=== PATIENT | female | born 1975 | race Caucasian/White ===

== ENCOUNTER → 2016-11-10 | Outpatient (CLI) | payer OTHER ==
[~2016-11-10] MED LIST: CARA1TAB2 PO; CITA20TA2 PO; LORA10TA2 PO; OMEP40CA2 PO; ORPH100T PO; TYLE325T5 PO; ZITHTAB PO
--- NOTE | 2016-11-10 11:23 | REP ---
NUCLEAR GASTRIC EMPTYING SCAN: Following the oral administration of 0.839 mCi of technetium 99m sulfur colloid in two scrambled eggs and 6 ounces of water, multiple images of the upper abdomen are performed for 90 minutes. At the end of 90 minutes, 13% of the ingested activity has emptied from the stomach. This yields a t1/2 of 258 minutes. A normal t1/2 is in the range of 90 minutes. IMPRESSION: Moderately delayed gastric emptying as discussed above. Signed by Jose Rosario MD 11/10/2016 12:58 P
== END ==
LOC: M RAD 07:46
PROVIDERS: ATTEND Internal Medicine Gastroenterology
DX: R10.13 Epigastric pain (principal); K31.84 Gastroparesis

== ENCOUNTER 2016-12-04 18:44 | Emergency (ER) | payer OTHER ==
[~2016-12-04] VITALS: Ht 167.6 cm; Wt 77.1 kg
[2016-12-04] MEDS ORDERED: REGL10TA6 PO (19:15)
[2016-12-04] MEDS ORDERED: LISI10TA4 PO (19:15)
[2016-12-05] MEDS ORDERED: KETOROLAC 30 MG/ML VIAL (J1885) IV ONE
[2016-12-05 00:34] LABS: BASO # 0.1 K/mm3 (0.0-0.2); BASO % 0.9 % (0.0-1.0); EOS # 0.3 K/mm3 (0.0-0.50); EOS % 3.6 % (0.0-3.0); LARGE UNSTAINED CELL # 0.1 K/mm3 (0.0-0.4); LARGE UNSTAINED CELL % 1.6 % (0.0-4.0); LYMPH # 2.6 K/mm3 (1.5-4.5); LYMPH % 30.9 % (24.0-44.0); MEAN CORPUSCULAR HEMOGLOBIN 31.7 pg (27.0-33.0); MEAN CORPUSCULAR HGB CONC 33.4 g/dl (32.0-36.5); MEAN CORPUSCULAR VOLUME 94.7 fl (80.0-96.0); MONO # 0.5 K/mm3 (0.0-0.8); MONO % 5.8 % (0.0-5.0); NEUTROPHILS # 4.5 K/mm3 (1.8-7.7); NEUTROPHILS % 57.2 % (36.0-66.0); PLATELET COUNT, AUTOMATED 238 k/mm3 (150-450); RED CELL DISTRIBUTION WIDTH 11.8 % (11.5-14.5); WHITE BLOOD COUNT 7.9 K/mm3 (4.0-10.0)
[2016-12-05 01:08] LABS: ALBUMIN 3.5 GM/DL (3.2-5.2); ALBUMIN/GLOBULIN RATIO 1.06 (1.00-1.93); ALKALINE PHOSPHATASE 74 U/L (45-117); ALT/SGPT 16 U/L (12-78); AMYLASE 48 U/L (25-115); ANION GAP 5 MEQ/L (8-16); AST/SGOT 11 U/L (15-37); BILIRUBIN,DIRECT 0.1 MG/DL (0.0-0.2); BILIRUBIN,TOTAL 0.3 MG/DL (0.2-1.0); BLOOD UREA NITROGEN 14 MG/DL (7-18); CALCIUM LEVEL 8.7 MG/DL (8.5-10.1); CARBON DIOXIDE LEVEL 29 MEQ/L (21-32); CHLORIDE LEVEL 105 MEQ/L (98-107); CREATININE FOR GFR 0.96 MG/DL (0.55-1.02); GLOMERULAR FILTRATION RATE > 60.0 (>60); GLUCOSE, FASTING 128 MG/DL (70-105); POTASSIUM SERUM 3.9 MEQ/L (3.5-5.1); SODIUM LEVEL 139 MEQ/L (136-145); TOTAL PROTEIN 6.8 GM/DL (6.4-8.2)
--- NOTE | 2016-12-05 01:30 | REPUSA ---
CT of the abdomen and pelvis without contrast Clinical statement: Pain. Technique: Multiple axial CT images were obtained from the base of the lungs to the floor of the pelv is utilizing 5 mm axial slices without administration of contrast. Coronal and sagittal reconstructio ns were also obtained. Comparison: 03/29/2016. Findings: Chest: The visualized lung bases are clear. Abdomen: There are innumerable low attenuation lesions throughout the liver and both kidneys, consist ent with polycystic liver and kidney disease. The liver is enlarged measuring 28.1 cm in diameter. Nu merous hyperdense lesions are seen in the kidneys bilaterally, likely representing hemorrhagic/comple x cysts. The spleen, pancreas, gallbladder and adrenal glands are unremarkable. The aorta demonstrate s normal caliber and contour. There is no abdominal lymphadenopathy or ascites. Pelvis: The bowel is unremarkable, with no obstructive or inflammatory changes. The appendix is vu l. The urinary bladder is within normal limits. There is no pelvic lymphadenopathy or ascites. There is a low attenuation lesion in the left ovary measuring 1.6 x 1.7 cm. The other pelvic structures arin ear unremarkable. Bones: There are no suspicious osseous abnormalities seen. Impression: 1. Severe polycystic kidney and liver disease as described. Hepatomegaly and enlargement of the kidne ys bilaterally. Hyperdense lesion in the kidneys likely represent hemorrhagic/complex cyst. 2. No evidence of hydronephrosis or nephrolithiasis. 3. No obstructive or inflammatory bowel changes. 4. Simple left ovarian cyst. 5. Overall, there is no significant interval change.
[2016-12-05 01:58] VITALS: BP 122/62
== END 2016-12-05 01:59 | disposition home or self-care (01) ==
LOC: M ED 19:55
DX: R10.13 Epigastric pain (principal); I10 Essential (primary) hypertension; F33.9 Major depressive disorder, recurrent, unspecified; G43.909 Migraine, unspecified, not intractable, without status migrainosus; K21.9 Gastro-esophageal reflux disease without esophagitis; Q61.3 Polycystic kidney, unspecified; K76.89 Other specified diseases of liver; Z79.899 Other long term (current) drug therapy; Z88.2 Allergy status to sulfonamides; Z91.041 Radiographic dye allergy status; F17.210 Nicotine dependence, cigarettes, uncomplicated
CPT/HCPCS: 36415; 74176; 80048; 80076; 82150; 83690; 85025; 96374; 99283; J1885

== ENCOUNTER → 2017-05-23 | Outpatient (CLI) | payer OTHER ==
[~2017-05-23] MED LIST changes: +LISI10TA4 PO; +REGL10TA6 PO
--- NOTE | 2017-05-23 14:34 | REP ---
LEFT KNEE, FIVE VIEWS: HISTORY: Pain. There is no acute fracture or dislocation. The joint spaces are normal in appearance. IMPRESSION: There is no acute fracture or dislocation. Signed by Domingo Roberts MD 05/23/2017 03:09 P
== END ==
LOC: M LRY 13:20
PROVIDERS: ATTEND Physician Assistant
DX: M25.462 Effusion, left knee (principal); M25.562 Pain in left knee

== ENCOUNTER → 2017-05-23 | Outpatient (REF) | payer OTHER ==
[2017-05-23 19:23] LABS: BASO # 0.1 10^3/uL (0.0-0.2); BASO % 0.9 % (0.0-1.0); EOS # 0.3 10^3/uL (0.0-0.50); EOS % 2.9 % (0.0-3.0); IMMATURE GRANULOCYTE % 0.1 % (0-0); LYMPH # 1.8 10^3/uL (1.5-4.5); LYMPH % 21.1 % (24.0-44.0); MEAN CORPUSCULAR HEMOGLOBIN 31.6 pg (27.0-33.0); MEAN CORPUSCULAR HGB CONC 32.9 g/dl (32.0-36.5); MEAN CORPUSCULAR VOLUME 96.1 fl (80.0-96.0); MONO # 0.7 10^3/uL (0.0-0.8); NEUTROPHILS # 5.9 10^3/uL (1.8-7.7); PLATELET COUNT, AUTOMATED 250 10^3/uL (150-450); RED CELL DISTRIBUTION WIDTH 12.6 % (11.5-14.5); WHITE BLOOD COUNT 8.7 10^3/uL (4.0-10.0)
[2017-05-23 19:26] LABS: ADD MORPHOLOGY? NO
[2017-05-27 00:06] LABS: Lyme Disease IgG/IgM Antibodie <0.91 ISR (0.00-0.90); Lyme Disease IgM Ab Quantitati <0.80 index (0.00-0.79)
== END ==
LOC: M SFHCLERA 14:10
PROVIDERS: ATTEND Physician Assistant
DX: M25.562 Pain in left knee (principal); M25.469 Effusion, unspecified knee

== ENCOUNTER → 2017-05-25 | Outpatient (CLI) | payer OTHER, SELFPAY ==
[~2017-05-25] MED LIST changes: +E-Z-GAS II EFFERVESCENT PACKET (SODIUM BICARB./CITRIC ACID/SIMETHICONE) As Ordered ONE; +E-Z-HD 98% w/w 340GM SUSP BTL As Ordered ONE; +E-Z-PAQUE 96% w/w SUSP 176GM BTL As Ordered ONE
--- NOTE | 2017-05-25 09:34 | REP ---
Complete abdominal sonography: History: Gastroparesis. The patient has a previous history of polycystic kidney disease. Comparison CT study is from December 05, 2016. The patient reports a palpable area in the epigastric region. Comparison sonography November 07, 2016. Sonographic findings: Scanning through the right upper quadrant of the abdomen demonstrates a normal sized thin-walled gallbladder without evidence of stone or polyp. The common bile duct is normal measuring 0.3 cm in greatest diameter. There are innumerable hepatic and renal cysts. The palpable area in the epigastric region reported by the patient corresponds to a superficial hepatic cyst measuring 2.5 x 3.0 x 1.9 cm. The largest cyst in the right lobe of the liver measures 7.5 x 6.1 x 6.5 cm. The largest left hepatic cyst measures 4.6 x 5.0 x 4.5 cm. Innumerable bilateral renal cysts are seen as well. The kidneys are bilaterally enlarged consistent with polycystic kidney disease. Right renal dimensions are 20 x 7.7 x 6.6 cm. The left kidney measures 19 x 7.3 x 7.6 cm. The pancreas is obscured by abdominal gas. A normal caliber aorta is seen. No ascites. Impression: Polycystic kidney disease with enlarged bilateral kidneys containing innumerable cysts. There are innumerable intrahepatic cysts again noted. Signed by Alfie Mayberry MD 05/25/2017 03:02 P
--- NOTE | 2017-05-25 09:51 | REP ---
Double contrast esophagram: History: Gastroparesis. 1 minute 14 seconds of fluoroscopy time was utilized. Findings: Preliminary PA chest radiograph: Business Supervisor view is unremarkable. Double contrast esophagram shows a normal esophagus and gastroesophageal junction. No hiatal hernia or stricture is seen. The oropharyngeal phase of barium swallow is unremarkable recorded on rapid sequence frontal and lateral spot radiographs. Mild gastroesophageal reflux was witnessed during the examination into the distal and mid esophagus. Impression: Mild gastroesophageal reflux noted. Otherwise unremarkable esophagram. Signed by Alfie Mayberry MD 05/25/2017 03:03 P
== END ==
LOC: M RAD 07:22
DX: K31.84 Gastroparesis (principal); R13.10 Dysphagia, unspecified; N28.81 Hypertrophy of kidney; Q61.3 Polycystic kidney, unspecified; K76.89 Other specified diseases of liver

== ENCOUNTER → 2019-05-13 | Outpatient (REF) | payer OTHER ==
[~2019-05-13] MED LIST changes: -E-Z-GAS II EFFERVESCENT PACKET (SODIUM BICARB./CITRIC ACID/SIMETHICONE) As Ordered ONE; -E-Z-HD 98% w/w 340GM SUSP BTL As Ordered ONE; -E-Z-PAQUE 96% w/w SUSP 176GM BTL As Ordered ONE; +PANT40TA3 PO; +SUCR1SS PO
== END ==
LOC: M SFHCLERA 13:59
PROVIDERS: ATTEND Nurse Practitioner Family
DX: R53.81 Other malaise (principal)

== ENCOUNTER → 2019-05-13 | Outpatient (CLI) | payer OTHER ==
--- NOTE | 2019-05-13 14:51 | REP ---
CHEST, TWO VIEWS: There is no evidence of acute infiltrate. No pleural effusion is seen. The heart is normal in size. The mediastinal silhouette is unremarkable. The visualized osseous structures are intact. IMPRESSION: No acute pulmonary disease. Electronically Signed by Jose Rosario MD 05/13/2019 06:54 P
== END ==
LOC: M LRY 14:21
PROVIDERS: ATTEND Nurse Practitioner Family
DX: R05 Cough (principal)

== ENCOUNTER → 2019-06-14 | Outpatient (REF) | payer OTHER ==
[2019-06-16 14:10] LABS: HPV HYBRID CAPTURE II Negative (Negative)
== END ==
LOC: M SFHCWAGY 13:26
PROVIDERS: ATTEND Nurse Practitioner Women's Health
DX: Z12.4 Encounter for screening for malignant neoplasm of cervix (principal); R87.5 Abnormal microbiological findings in specimens from female genital organs
CPT/HCPCS: 87624; G0123

== ENCOUNTER → 2019-06-14 | Outpatient (CLI) | payer OTHER ==
--- NOTE | 2019-06-14 12:16 | REPMRS ---
Patient History The patient states she had a clinical breast exam in 05/2019. Family history of endometrial cancer at age 50 or over in maternal grandmother. No Hormone Replacement Therapy 3D TOMOSYNTHESIS WAS PERFORMED. [facility] lifetime risk for breast cancer is 10.8%. Digital Woman Screen Mammo: June 14, 2019 - Exam #: [id number] Bilateral CC and MLO view(s) were taken. Technologist: Stephanie Ramos, Technologist No prior studies available for comparison. FINDINGS: The breast tissue is heterogeneously dense. This may lower the sensitivity of mammography. There is no evidence of cancer on this mammogram. Assessment: BI-RADS/ACR category 2 mammogram. Benign Findings. Recommendation Routine screening mammogram of both breasts in 1 year (for women over age 40). This mammogram was interpreted with the aid of an FDA-approved computer-aided dectection system. Electronically Signed By: Jose Rosario MD 06/14/19 [id number]
== END ==
LOC: M WHC 11:00
PROVIDERS: ATTEND Nurse Practitioner Women's Health
DX: Z12.31 Encounter for screening mammogram for malignant neoplasm of breast (principal); Z80.49 Family history of malignant neoplasm of other genital organs

== ENCOUNTER → 2019-06-17 | Outpatient (CLI) | payer OTHER ==
--- NOTE | 2019-06-17 17:08 | REP ---
HISTORY: Metromenorrhagia. Transvesical and transvaginal imaging was obtained. The latest prior for comparison 02/20/2011, which showed no significant abnormality. Two small uterine fibroids were seen. Today's examination shows the uterus to measure 10.9 x 6.7 cm. The parenchymal echo pattern is heterogenous. In the posterior fundal region, there is a 5.1 x 4.4 x 3.9 cm sized mixed echo structure and in the anterior lower uterine segment there is a 4.5 x 3 x 3.2 mixed echo structure, both consistent with myomatous changes and both increased significantly compared to the prior exam. The endometrial echo complex is abnormally thickened and heterogeneous measuring 1.5 cm. The right ovary measures 3.2 x 1.4 x 2.5 cm and is within normal limits with an RI of 0.5. Left ovary measures 3.8 x 2.2 x 2.7 cm. Within the left ovary there is a 2.5 x 1.6 x 2.4 cm sized anechoic structure which exhibits posterior wall enhancement and increased through transmission. Urinary bladder measures 6 x 6 x 3 cm. IMPRESSION: 1. Uterine myomatous changes as described above. 2. Thickened somewhat heterogenous endometrial echo complex. Correlate clinically. 3. Simple left ovarian cyst. Electronically Signed by Bal Cherry DO 06/20/2019 02:27 P
== END ==
LOC: M RAD 12:03
PROVIDERS: ATTEND Nurse Practitioner Women's Health
DX: N83.202 Unspecified ovarian cyst, left side (principal); D25.9 Leiomyoma of uterus, unspecified; N92.1 Excessive and frequent menstruation with irregular cycle; N94.10 Unspecified dyspareunia

== ENCOUNTER → 2019-06-24 | Outpatient (REF) | payer OTHER | LOC: M SFHCWAGY 09:34 | PROVIDERS: ATTEND Nurse Practitioner Women's Health | DX: N92.1 Excessive and frequent menstruation with irregular cycle (principal); R93.89 Abnormal findings on diagnostic imaging of other specified body structures ==

== ENCOUNTER 2019-10-07 05:53 | Day surgery (SDC) | payer OTHER ==
[2019-10-07] VITALS (7 sets, daily range): BP systolic 116–129; BP diastolic 74–89
[~2019-10-07] VITALS: Ht 167.6 cm; Wt 78.0 kg
[~2019-10-07 05:53] MED LIST changes: +CITA40TA4 PO; +LISI-542 PO; +PEPC10TA6 PO
[2019-10-07] MEDS ORDERED: LIDOCAINE 1% MDV 20ML VIAL SQ PRN (06:00)
[2019-10-07] MEDS ORDERED: LR 1,000 ML IV ONE (07:00)
[2019-10-07] MEDS ORDERED: ceFAZolin 2 GM/D5W 50 ML IV BAG (J0690 PER 500MG) As Ordered ONE (07:28)
[2019-10-07 07:44] LABS: HEMATOCRIT 42.1 % (36.0-47.0); HEMOGLOBIN 13.7 g/dl (12.0-15.5); MEAN CORPUSCULAR HEMOGLOBIN 30.7 pg (27.0-33.0); MEAN CORPUSCULAR HGB CONC 32.5 g/dl (32.0-36.5); MEAN CORPUSCULAR VOLUME 94.4 fl (80.0-96.0); PLATELET COUNT, AUTOMATED 263 10^3/uL (150-450); RED BLOOD COUNT 4.46 10^6/uL (4.00-5.40); WHITE BLOOD COUNT 7.7 10^3/uL (4.0-10.0)
[2019-10-07] MEDS ORDERED: ceFAZolin SOD 2 GM in IV 1 EA IV ONE (07:45)
[2019-10-07] MEDS ORDERED: METHYLENE BLUE 0.5% (5MG/ML) 10 ML AMP (PROVAYBLUE)(Q9968 PER 1MG) As Ordered ONE (08:32)
[2019-10-07] MEDS ORDERED: BUPIVACAINE HCL 0.25% 30 ML VIAL As Ordered ONE (08:32)
[2019-10-07] MEDS ORDERED: LIDOCAINE 2% INJ 100 MG/5 ML SDV (FOR ANES.) As Ordered ONE ×3 (08:40→09:28)
[2019-10-07] MEDS ORDERED: MIDAZOLAM INJ 2 MG/2 ML VIAL (J2250) As Ordered ONE (08:40)
[2019-10-07] MEDS ORDERED: propofoL 200 MG/20 ML VIAL As Ordered ONE (08:40)
[2019-10-07] MEDS ORDERED: dexameTHASONE 4 MG/ML 1ML VIAL (J1100) As Ordered ONE (08:40)
[2019-10-07] MEDS ORDERED: ROCURONIUM BROMIDE 50 MG/5 ML VIAL As Ordered ONE ×2 (08:40→10:20)
[2019-10-07] MEDS ORDERED: fentaNYL 100 MCG/2 ML INJECTION (J3010) As Ordered ONE ×2 (08:40→09:27)
[2019-10-07] MEDS ORDERED: ONDANSETRON 4MG/2ML VIAL (J2405) As Ordered ONE (08:41)
[2019-10-07] MEDS ORDERED: SUGAMMADEX SODIUM 500 MG/5 ML VIAL (BRIDION) As Ordered ONE (08:42)
[2019-10-07] MEDS ORDERED: KETOROLAC 60 MG/2 ML VIAL (J1885) As Ordered ONE (08:42)
[2019-10-07] MEDS ORDERED: METOCLOPRAMIDE INJ 10MG/2ML VIAL (J2765) As Ordered ONE (08:43)
[2019-10-07] MEDS ORDERED: SCOPOLAMINE 1MG TRANSDERMAL PATCH As Ordered ONE (08:48)
[2019-10-07] MEDS ORDERED: SCOPOLAMINE 1MG TRANSDERMAL PATCH TOP ONE (09:00)
[2019-10-07] MEDS ORDERED: ACETAMINOPHEN 1000MG 100ML IV BTL (OFIRMEV) (J0131 PER 10MG) As Ordered ONE (10:21)
[2019-10-07] MEDS ORDERED: PROMETHAZINE INJ 25 MG/ML VIAL (J2550) IV PRN (11:15)
[2019-10-07] MEDS ORDERED: ONDANSETRON 4MG/2ML VIAL (J2405) IV PRN ×2 (11:15→11:45)
[2019-10-07] MEDS ORDERED: ONDANSETRON 4 MG ORAL DISINTEGRATING TAB (Q0162 PER 1MG) PO PRN (11:15)
[2019-10-07] MEDS ORDERED: PERCOCET 5MG/325MG TAB PO PRN ×3 (11:15→11:45)
[2019-10-07] MEDS ORDERED: fentaNYL 100 MCG/2 ML INJECTION (J3010) IV PRN (11:45)
[2019-10-07] MEDS ORDERED: LR 1,000 ML IV SCH (11:45)
[2019-10-07] MEDS ORDERED: PILL CUTTER 1 EACH XX PRN (12:30)
[2019-10-07] MEDS: FAMOTIDINE 20 MG TAB PO SCH (13:35)
[2019-10-07] MEDS: lisinopriL 5 MG TAB PO SCH (13:35)
[2019-10-07] MEDS: CitaloPRAM (CeleXA) 20 MG TAB PO SCH (13:35)
[2019-10-07] MEDS: LR 1,000 ML IV SCH ×3 (13:36→21:06)
[2019-10-07] MEDS: MORPHINE 4 MG/ML 1ML VIAL/SYRINGE (J2270) IV PRN (19:01)
[2019-10-07] MEDS: DOCUSATE SODIUM 100 MG CAP PO SCH (21:06)
[2019-10-08 00:30] VITALS: BP 119/74
[2019-10-08 02:00] VITALS: BP 132/81
[2019-10-08] MEDS: MORPHINE 4 MG/ML 1ML VIAL/SYRINGE (J2270) IV PRN (03:57)
[2019-10-08 06:00] VITALS: BP 120/77
[2019-10-08 06:26] LABS: BASO % 0.2 % (0.0-1.0); EOS % 0.1 % (0.0-3.0); LYMPH # 1.9 10^3/uL (1.5-5.0); LYMPH % 10.4 % (24.0-44.0); MEAN CORPUSCULAR HEMOGLOBIN 31.1 pg (27.0-33.0); MEAN CORPUSCULAR HGB CONC 33.3 g/dl (32.0-36.5); MEAN CORPUSCULAR VOLUME 93.3 fl (80.0-96.0); MONO # 1.2 10^3/uL (0.0-0.8); MONO % 6.6 % (0.0-5.0); NEUTROPHILS # 14.7 10^3/uL (1.5-8.5); NEUTROPHILS % 82.1 % (36.0-66.0); PLATELET COUNT, AUTOMATED 220 10^3/uL (150-450); RED BLOOD COUNT 3.86 10^6/uL (4.00-5.40); WHITE BLOOD COUNT 17.9 10^3/uL (4.0-10.0)
[2019-10-08] MEDS: DOCUSATE SODIUM 100 MG CAP PO SCH (08:30)
[2019-10-08] MEDS: CitaloPRAM (CeleXA) 20 MG TAB PO SCH (08:31)
[2019-10-08] MEDS: FAMOTIDINE 20 MG TAB PO SCH (08:31)
[2019-10-08] MEDS: LR 1,000 ML IV SCH (08:31)
[2019-10-08 08:32] VITALS: BP 121/78
[2019-10-08] MEDS: lisinopriL 5 MG TAB PO SCH (08:32)
[2019-10-08 10:00] VITALS: BP 122/78
[2019-10-08] MEDS ORDERED: DOCU100C16 PO (13:09)
[2019-10-08] MEDS ORDERED: OXYC1TAB23 PO (13:09)
== END 2019-10-08 14:13 | disposition home or self-care (01) ==
LOC: M SDC 05:53 → M MSPAV 12:19 → M SDC 10-08 14:13
PROVIDERS: ATTEND Obstetrics & Gynecology
DX: N85.00 Endometrial hyperplasia, unspecified (principal); D25.1 Intramural leiomyoma of uterus; D25.2 Subserosal leiomyoma of uterus; N72 Inflammatory disease of cervix uteri; Q44.6 Cystic disease of liver
CPT/HCPCS: 36415; 58571; 84702; 85025; 85027; 86850; 86900; 86901; 88307; 96374; 96376; J0131; J0690; J1100; J1885; J2250; J2270; J2405; J2765; J3010; Q9968

== ENCOUNTER → 2020-05-28 | Outpatient (CLI) | payer OTHER ==
[~2020-05-28] MED LIST changes: +DOCU100C16 PO; +OXYC1TAB23 PO; +PANT40TA29 PO; -PANT40TA3 PO
[2020-05-28 13:14] LABS: BILIRUBIN,DIRECT 0.1 MG/DL (0.0-0.2); BILIRUBIN,TOTAL 0.6 MG/DL (0.2-1.0); CALCIUM LEVEL 9.5 MG/DL (8.5-10.1); CREATININE FOR GFR 1.75 MG/DL (0.55-1.30); GLOMERULAR FILTRATION RATE 33.9 (>58); POTASSIUM SERUM 4.1 MEQ/L (3.5-5.1); TOTAL PROTEIN 7.4 GM/DL (6.4-8.2)
== END ==
LOC: M LAB 12:00
PROVIDERS: ATTEND Internal Medicine Nephrology
DX: N18.2 Chronic kidney disease, stage 2 (mild) (principal); Q61.2 Polycystic kidney, adult type

== ENCOUNTER → 2020-06-27 | Outpatient (CLI) | payer OTHER ==
[2020-06-27 10:07] LABS: ALBUMIN 3.9 GM/DL (3.2-5.2); BILIRUBIN,TOTAL 0.5 MG/DL (0.2-1.0); CALCIUM LEVEL 9.9 MG/DL (8.5-10.1); CREATININE FOR GFR 1.61 MG/DL (0.55-1.30); GLOMERULAR FILTRATION RATE 37.2 (>58); POTASSIUM SERUM 4.5 MEQ/L (3.5-5.1); TOTAL PROTEIN 7.6 GM/DL (6.4-8.2)
== END ==
LOC: M LAB 08:36
PROVIDERS: ATTEND Internal Medicine Nephrology
DX: Z79.899 Other long term (current) drug therapy (principal)

== ENCOUNTER → 2020-08-31 | Outpatient (CLI) | payer OTHER ==
[2020-08-31 14:32] LABS: BILIRUBIN,TOTAL 0.4 MG/DL (0.2-1.0); CALCIUM LEVEL 9.4 MG/DL (8.5-10.1); CREATININE FOR GFR 1.59 MG/DL (0.55-1.30); GLOMERULAR FILTRATION RATE 37.7 (>58); POTASSIUM SERUM 4.7 MEQ/L (3.5-5.1); TOTAL PROTEIN 7.4 GM/DL (6.4-8.2)
== END ==
LOC: M LAB 12:32
PROVIDERS: ATTEND Internal Medicine Nephrology
DX: Z79.899 Other long term (current) drug therapy (principal)

== ENCOUNTER → 2020-10-05 | Outpatient (CLI) | payer OTHER ==
[~2020-10-05] MED LIST changes: -LISI-542 PO; +LISI-898 PO; +LISI10TA22 PO; -LISI10TA4 PO
[2020-10-05 13:32] LABS: BILIRUBIN,TOTAL 0.3 MG/DL (0.2-1.0); CALCIUM LEVEL 9.2 MG/DL (8.5-10.1); CREATININE FOR GFR 1.49 MG/DL (0.55-1.30); GLOMERULAR FILTRATION RATE 40.7 (>58); POTASSIUM SERUM 4.8 MEQ/L (3.5-5.1); TOTAL PROTEIN 7.5 GM/DL (6.4-8.2)
== END ==
LOC: M LAB 12:20
PROVIDERS: ATTEND Internal Medicine Nephrology
DX: Z51.81 Encounter for therapeutic drug level monitoring (principal); Z79.899 Other long term (current) drug therapy

== ENCOUNTER → 2020-11-08 | Outpatient (CLI) | payer OTHER ==
[2020-11-08 14:22] LABS: ALBUMIN 3.9 GM/DL (3.2-5.2); BILIRUBIN,TOTAL 0.3 MG/DL (0.2-1.0); CALCIUM LEVEL 9.4 MG/DL (8.5-10.1); CREATININE FOR GFR 1.27 MG/DL (0.55-1.30); GLOMERULAR FILTRATION RATE 48.9 (>58); POTASSIUM SERUM 4.3 MEQ/L (3.5-5.1); TOTAL PROTEIN 7.3 GM/DL (6.4-8.2)
== END ==
LOC: M LAB 13:23
PROVIDERS: ATTEND Internal Medicine Nephrology
DX: Z79.899 Other long term (current) drug therapy (principal)

== ENCOUNTER → 2020-11-08 | Outpatient (CLI) | payer OTHER ==
[2020-11-08 14:06] LABS: INR 0.95; PROTHROMBIN TIME 12.9 SECONDS (12.5-14.3)
[2020-11-08 14:07] LABS: PARTIAL THROMBOPLASTIN TIME 33.1 SECONDS (24.2-38.5)
[2020-11-08 14:17] LABS: COLLAGEN EPINEPHRINE 89 SECONDS (74-162)
== END ==
LOC: M LAB 13:20
PROVIDERS: ATTEND Physician Assistant
DX: M47.27 Other spondylosis with radiculopathy, lumbosacral region (principal)

== ENCOUNTER → 2020-11-09 | Outpatient (CLI) | payer OTHER ==
[2020-11-09 10:22] LABS: PLATELET COUNT, AUTOMATED 252 10^3/uL (150-450)
== END ==
LOC: M LAB 09:56
PROVIDERS: ATTEND Physical Medicine & Rehabilitation
DX: Z01.812 Encounter for preprocedural laboratory examination (principal)

== ENCOUNTER → 2020-12-27 | Outpatient (CLI) | payer OTHER ==
[2020-12-27 12:49] LABS: CALCIUM LEVEL 8.9 MG/DL (8.5-10.1); CREATININE FOR GFR 1.18 MG/DL (0.55-1.30); GLOMERULAR FILTRATION RATE 53.2 (>58); POTASSIUM SERUM 4.2 MEQ/L (3.5-5.1)
[2020-12-27 12:50] LABS: ALBUMIN 3.4 GM/DL (3.2-5.2); BILIRUBIN,TOTAL 0.4 MG/DL (0.2-1.0); TOTAL PROTEIN 6.6 GM/DL (6.4-8.2)
== END ==
LOC: M LAB 11:42
PROVIDERS: ATTEND Internal Medicine Nephrology
DX: Z79.899 Other long term (current) drug therapy (principal)

== ENCOUNTER → 2020-12-31 | Outpatient (CLI) | payer OTHER ==
--- NOTE | 2020-12-31 19:13 | REP ---
INDICATION: PAIN IN LEFT SHOULDER COMPARISON: None. TECHNIQUE: Three views left shoulder. FINDINGS: There is no evidence of acute fracture, dislocation, or intrinsic bone disease.The joint spaces are unremarkable. IMPRESSION: Negative left shoulder series. <Electronically signed by Jose Rosario > 12/31/20 [id number]
== END ==
LOC: M RAD 18:38
PROVIDERS: ATTEND Physician Assistant
DX: M25.512 Pain in left shoulder (principal)

== ENCOUNTER → 2021-05-10 | Outpatient (CLI) | payer OTHER ==
[~2021-05-10] MED LIST changes: -CITA40TA4 PO; +CITA40TA7 PO; -LISI-898 PO; +LISI5TAB11 PO
== END ==
LOC: M RAD 12:49
PROVIDERS: ATTEND Internal Medicine
DX: K31.84 Gastroparesis (principal)
CPT/HCPCS: 78264; A9541

== ENCOUNTER → 2021-08-22 | Outpatient (CLI) | payer OTHER ==
[~2021-08-22] MED LIST changes: +CITA40TA4 PO; -CITA40TA7 PO; +LISI-898 PO; -LISI5TAB11 PO
[2021-08-22 12:23] LABS: ALBUMIN 3.6 GM/DL (3.2-5.2); BILIRUBIN,TOTAL 0.2 MG/DL (0.2-1.0); CALCIUM LEVEL 9.3 MG/DL (8.5-10.1); CREATININE FOR GFR 1.32 MG/DL (0.55-1.30); GLOMERULAR FILTRATION RATE 46.5 (>58); POTASSIUM SERUM 4.1 MEQ/L (3.5-5.1); TOTAL PROTEIN 7.3 GM/DL (6.4-8.2)
== END ==
LOC: M LAB 10:05
PROVIDERS: ATTEND Internal Medicine Nephrology
DX: Q61.2 Polycystic kidney, adult type (principal)

== ENCOUNTER → 2021-10-28 | Outpatient (CLI) | payer OTHER ==
[~2021-10-28] MED LIST changes: -CITA40TA4 PO; +CITA40TA7 PO; -LISI-898 PO; +LISI5TAB11 PO
[2021-10-28 11:38] LABS: BILIRUBIN,TOTAL 0.5 MG/DL (0.2-1.0); CALCIUM LEVEL 9.6 MG/DL (8.5-10.1); CREATININE FOR GFR 1.58 MG/DL (0.55-1.30); GLOMERULAR FILTRATION RATE 37.8 (>58); POTASSIUM SERUM 4.3 MEQ/L (3.5-5.1); TOTAL PROTEIN 7.6 GM/DL (6.4-8.2)
== END ==
LOC: M LAB 10:22
PROVIDERS: ATTEND Internal Medicine Nephrology
DX: Q61.2 Polycystic kidney, adult type (principal)

== ENCOUNTER → 2021-12-06 | Outpatient (CLI) | payer OTHER ==
[2021-12-06 13:32] LABS: ALBUMIN 3.9 GM/DL (3.2-5.2); BILIRUBIN,TOTAL 0.4 MG/DL (0.2-1.0); CALCIUM LEVEL 9.6 MG/DL (8.5-10.1); CREATININE FOR GFR 1.38 MG/DL (0.55-1.30); GLOMERULAR FILTRATION RATE 44.2 (>58); POTASSIUM SERUM 4.5 MEQ/L (3.5-5.1); TOTAL PROTEIN 7.1 GM/DL (6.4-8.2)
== END ==
LOC: M LAB 11:28
PROVIDERS: ATTEND Internal Medicine Nephrology
DX: Q61.2 Polycystic kidney, adult type (principal)

== ENCOUNTER → 2022-02-17 | Outpatient (CLI) | payer OTHER ==
[2022-02-17 11:28] LABS: ALBUMIN 3.8 GM/DL (3.2-5.2); BILIRUBIN,TOTAL 0.5 MG/DL (0.2-1.0); CALCIUM LEVEL 9.7 MG/DL (8.5-10.1); CREATININE FOR GFR 1.48 MG/DL (0.55-1.30); GLOMERULAR FILTRATION RATE 40.8 (>58); POTASSIUM SERUM 4.3 MEQ/L (3.5-5.1); TOTAL PROTEIN 7.2 GM/DL (6.4-8.2)
== END ==
LOC: M LAB 10:01
PROVIDERS: ATTEND Internal Medicine Nephrology
DX: Q61.2 Polycystic kidney, adult type (principal)

== ENCOUNTER → 2022-12-02 | Outpatient (CLI) | payer OTHER ==
[2022-12-02 16:44] LABS: APPEARANCE, URINE CLEAR (CLEAR); BACTERIA, URINE AUTO NEGATIVE (NEGATIVE); BILIRUBIN, URINE AUTO NEGATIVE (NEGATIVE); BLOOD, URINE BLOOD 1+ (NEGATIVE); COLOR, URINE YELLOW (YELLOW); GLUCOSE, URINE (UA) AUTO NEGATIVE (NEGATIVE); KETONE, URINE AUTO NEGATIVE (NEGATIVE); LEUKOCYTE ESTERASE, URINE AUTO NEGATIVE (NEGATIVE); NITRITE, URINE AUTO NEGATIVE (NEGATIVE); PROTEIN, URINE AUTO NEGATIVE (NEGATIVE); RBC, URINE AUTO 1 /HPF (0-3); SPECIFIC GRAVITY URINE AUTO 1.005 (1.002-1.035); SQUAMOUS EPITHELIAL CELL UR AU 4 /HPF (0-6); UROBILINOGEN, URINE AUTO 0.2 mg/dL (0.0-2.0); WBC, URINE AUTO 1 /HPF (0-3)
== END ==
LOC: M LAB 16:08
PROVIDERS: ATTEND Nurse Practitioner
DX: N20.0 Calculus of kidney (principal); N28.1 Cyst of kidney, acquired

== ENCOUNTER 2022-12-14 03:05 | Emergency (ER) | payer OTHER ==
[~2022-12-14] VITALS: Ht 167.6 cm; Wt 87.9 kg
[2022-12-14] MEDS ORDERED: CALC1CAP31 (03:27)
[2022-12-14] MEDS ORDERED: LISI10TA22 (03:27)
[2022-12-14] MEDS ORDERED: PARO40TA2 (03:27)
[2022-12-14] MEDS ORDERED: SUCR1TAB56 (03:27)
[2022-12-14] MEDS ORDERED: PAXI40TA12 PO (03:28)
[2022-12-14] MEDS ORDERED: DEXI60CA2 (03:28)
[2022-12-14] MEDS ORDERED: [UNRECOGNIZED DRUG - CODE] (03:28)
[2022-12-14] MEDS ORDERED: REGL10TA6 (03:28)
[2022-12-14] MEDS ORDERED: KETOROLAC 30 MG/ML 1ML VIAL IV ONE (04:15)
[2022-12-14] MEDS ORDERED: ONDANSETRON 4MG 2ML VIAL IV ONE (04:15)
[2022-12-14 04:25] LABS: BASO # 0.1 10^3/uL (0.0-0.2); EOS # 0.4 10^3/uL (0.0-0.5); EOS % 4.6 % (0.0-3.0); HEMATOCRIT 39.6 % (36.0-47.0); HEMOGLOBIN 12.6 g/dl (12.0-15.5); LYMPH # 1.9 10^3/uL (1.5-5.0); LYMPH % 22.7 % (24.0-44.0); MEAN CORPUSCULAR HEMOGLOBIN 30.7 pg (27.0-33.0); MEAN CORPUSCULAR HGB CONC 31.8 g/dl (32.0-36.5); MEAN CORPUSCULAR VOLUME 96.4 fl (80.0-96.0); MONO # 0.8 10^3/uL (0.0-0.8); NEUTROPHILS # 5.2 10^3/uL (1.5-8.5); NEUTROPHILS % 62.3 % (36.0-66.0); PLATELET COUNT, AUTOMATED 234 10^3/uL (150-450); RED BLOOD COUNT 4.11 10^6/uL (4.00-5.40); WHITE BLOOD COUNT 8.3 10^3/uL (4.0-10.0)
[2022-12-14 04:52] LABS: LIPASE 45 U/L (12-53)
[2022-12-14 04:54] LABS: ALBUMIN 3.4 G/DL (3.2-5.2); ALKALINE PHOSPHATASE 181 U/L (46-116); ALT/SGPT 33 U/L (7.0-40); AST/SGOT 25 U/L (<34); BILIRUBIN,DIRECT 0.1 MG/DL (<0.4); BILIRUBIN,TOTAL 0.3 MG/DL (0.3-1.2); BLOOD UREA NITROGEN 12 MG/DL (9-23); CALCIUM LEVEL 8.9 MG/DL (8.5-10.1); CARBON DIOXIDE LEVEL 27 MMOL/L (20-31); CHLORIDE LEVEL 106 MMOL/L (98-107); CK-MB VALUE MASS < 1.0 NG/ML (<3.6); CPK CREATINE PHOSPHOKINASE 59 U/L (34-145); CREATININE FOR GFR 1.61 MG/DL (0.55-1.30); GLOMERULAR FILTRATION RATE 36.8 (>58); GLUCOSE, FASTING 109 MG/DL (60-100); MB/CK RELATIVE INDEX 1.69 (< OR =4); POTASSIUM SERUM 4.4 MMOL/L (3.5-5.1); SODIUM LEVEL 138 MMOL/L (136-145); TOTAL PROTEIN 6.8 G/DL (5.7-8.2)
[2022-12-14 04:55] LABS: HCG, SERUM QUALITATIVE NEGATIVE (NEGATIVE)
[2022-12-14 05:00] LABS: RSV AMPLIFICATION NEGATIVE (NEGATIVE)
[2022-12-14] MEDS ORDERED: NS 1,000 ML IV ONE (05:10)
[2022-12-14] MEDS ORDERED: LIDOCAINE 2% 5ML JELLY UROJET TOP ONE (07:00)
[2022-12-14 07:29] LABS: APPEARANCE, URINE HAZY (CLEAR); BACTERIA, URINE AUTO 2+ (NEGATIVE); BILIRUBIN, URINE AUTO NEGATIVE (NEGATIVE); BLOOD, URINE BLOOD 2+ (NEGATIVE); COLOR, URINE YELLOW (YELLOW); GLUCOSE, URINE (UA) AUTO NEGATIVE (NEGATIVE); KETONE, URINE AUTO NEGATIVE (NEGATIVE); LEUKOCYTE ESTERASE, URINE AUTO NEGATIVE (NEGATIVE); NITRITE, URINE AUTO NEGATIVE (NEGATIVE); PROTEIN, URINE AUTO 1+ mg/dL (NEGATIVE); RBC, URINE AUTO 28 /HPF (0-3); SPECIFIC GRAVITY URINE AUTO 1.004 (1.002-1.035); SQUAMOUS EPITHELIAL CELL UR AU 4 /HPF (0-6); UROBILINOGEN, URINE AUTO 0.2 mg/dL (0.0-2.0); WBC, URINE AUTO 5 /HPF (0-3)
[2022-12-14] MEDS ORDERED: ACET-716 PO (07:54)
[2022-12-14 08:16] VITALS: BP 118/77
== END 2022-12-14 08:22 | disposition home or self-care (01) ==
LOC: M ED 03:05
DX: R10.9 Unspecified abdominal pain (principal); Q61.3 Polycystic kidney, unspecified; Q44.6 Cystic disease of liver; I10 Essential (primary) hypertension; K21.9 Gastro-esophageal reflux disease without esophagitis; Z91.041 Radiographic dye allergy status; Z88.2 Allergy status to sulfonamides; Z88.8 Allergy status to other drugs, medicaments and biological substances; Z79.899 Other long term (current) drug therapy
CPT/HCPCS: 71045; 74176; 80048; 80076; 81001; 82550; 82553; 83605; 83690; 84484; 84703; 85025; 87040; 87086; 87631; 96374; 96375; 99284; J1885; J2405

== ENCOUNTER 2022-12-17 07:37 | Inpatient (IN) | payer OTHER ==
[~2022-12-17] VITALS: Ht 167.6 cm; Wt 87.5 kg
[~2022-12-17 07:37] MED LIST changes: +ACET-716 PO; +CALC1CAP31 PO; +DEXI60CA2 PO; +PARO40TA2 PO; +PAXI40TA12 PO; +SUCR1TAB56 PO; +[UNRECOGNIZED DRUG - CODE] PO
[2022-12-17] MEDS ORDERED: MORPHINE 4 MG/ML 1ML VIAL IV ONE (08:30)
[2022-12-17] MEDS ORDERED: NS 1,000 ML IV ONE (08:30)
[2022-12-17] MEDS ORDERED: PANTOPRAZOLE 40MG TAB (PROTONIX) PO SCH (09:00)
[2022-12-17 09:13] LABS: BASO # 0.1 10^3/uL (0.0-0.2); BASO % 0.5 % (0.0-1.0); EOS # 0.1 10^3/uL (0.0-0.5); EOS % 1.1 % (0.0-3.0); HEMATOCRIT 33.6 % (36.0-47.0); HEMOGLOBIN 11.2 g/dl (12.0-15.5); LYMPH # 0.9 10^3/uL (1.5-5.0); LYMPH % 7.8 % (24.0-44.0); MEAN CORPUSCULAR HEMOGLOBIN 31.5 pg (27.0-33.0); MEAN CORPUSCULAR HGB CONC 33.3 g/dl (32.0-36.5); MEAN CORPUSCULAR VOLUME 94.4 fl (80.0-96.0); MONO # 0.9 10^3/uL (0.0-0.8); MONO % 8.1 % (2.0-8.0); NEUTROPHILS # 8.9 10^3/uL (1.5-8.5); NEUTROPHILS % 81.9 % (36.0-66.0); PLATELET COUNT, AUTOMATED 202 10^3/uL (150-450); RED BLOOD COUNT 3.56 10^6/uL (4.00-5.40); WHITE BLOOD COUNT 10.8 10^3/uL (4.0-10.0)
[2022-12-17 09:34] LABS: LIPASE 24 U/L (12-53)
[2022-12-17 09:37] LABS: ALBUMIN 2.8 G/DL (3.2-5.2); ALKALINE PHOSPHATASE 165 U/L (46-116); ALT/SGPT < 9 U/L (7.0-40); AST/SGOT 13 U/L (<34); BILIRUBIN,DIRECT 0.3 MG/DL (<0.4); BILIRUBIN,TOTAL 0.7 MG/DL (0.3-1.2); BLOOD UREA NITROGEN 22 MG/DL (9-23); CALCIUM LEVEL 8.3 MG/DL (8.5-10.1); CARBON DIOXIDE LEVEL 25 MMOL/L (20-31); CHLORIDE LEVEL 104 MMOL/L (98-107); CREATININE FOR GFR 2.51 MG/DL (0.55-1.30); GLOMERULAR FILTRATION RATE 22.1 (>58); GLUCOSE, FASTING 102 MG/DL (60-100); POTASSIUM SERUM 4.4 MMOL/L (3.5-5.1); SODIUM LEVEL 136 MMOL/L (136-145); TOTAL PROTEIN 5.9 G/DL (5.7-8.2)
[2022-12-17] MEDS ORDERED: cefTRIAXone SOD 1 GM in D5W MINI-BAG PLUS 50 ML IV ONE (10:05)
[2022-12-17] MEDS ORDERED: HOME MED LIST COMPLETE! XX SCH (12:40)
[2022-12-17] MEDS ORDERED: METOCLOPRAMIDE 10MG TAB PO PRN (13:35)
[2022-12-17] MEDS ORDERED: MOM 30ML SUSPENSION UDC PO PRN (13:35)
[2022-12-17] MEDS ORDERED: MORPHINE 2 MG/ML 1ML VIAL IV ONE (14:00)
[2022-12-17] MEDS ORDERED: ACETAMINOPHEN 500 MG TAB PO PRN (14:35)
[2022-12-17] MEDS: LR 1,000 ML IV SCH ×2 (15:15→22:35)
[2022-12-17] MEDS: DOCUSATE SODIUM 100MG CAPSULE PO SCH ×2 (15:47→20:41)
[2022-12-17] MEDS: LIDOCAINE 5% (LIDODERM) PATCH TD SCH (15:56)
[2022-12-17 16:00] VITALS: BP 109/75
[2022-12-17] MEDS: HYDROMORPHONE HCL 0.5 MG/ 0.5 ML SYRINGE IV PRN (19:17)
[2022-12-17 20:00] VITALS: BP 116/79
[2022-12-17] MEDS ORDERED: TOLVAPTAN 15 MG TAB (SAMSCA) PO SCH (20:00)
[2022-12-17] MEDS: SUCRALFATE 1 GM TAB PO SCH (20:41)
[2022-12-18 06:00] VITALS: BP 121/79
[2022-12-18 07:27] LABS: HEMATOCRIT 31.7 % (36.0-47.0); HEMOGLOBIN 10.2 g/dl (12.0-15.5); MEAN CORPUSCULAR HEMOGLOBIN 30.4 pg (27.0-33.0); MEAN CORPUSCULAR HGB CONC 32.2 g/dl (32.0-36.5); MEAN CORPUSCULAR VOLUME 94.3 fl (80.0-96.0); PLATELET COUNT, AUTOMATED 216 10^3/uL (150-450); RED BLOOD COUNT 3.36 10^6/uL (4.00-5.40)
[2022-12-18 08:10] LABS: ALBUMIN 2.5 G/DL (3.2-5.2); CALCIUM LEVEL 8.5 MG/DL (8.5-10.1); CREATININE FOR GFR 2.44 MG/DL (0.55-1.30); GLOMERULAR FILTRATION RATE 22.8 (>58); MAGNESIUM LEVEL 1.6 MG/DL (1.8-2.4); PHOSPHORUS LEVEL 3.5 MG/DL (2.5-4.9); POTASSIUM SERUM 4.5 MMOL/L (3.5-5.1)
[2022-12-18] MEDS: LIDOCAINE 5% (LIDODERM) PATCH TD SCH (09:00)
[2022-12-18] MEDS: TOLVAPTAN 15 MG TAB (SAMSCA) PO SCH ×2 (09:00→09:44)
[2022-12-18] MEDS: DOCUSATE SODIUM 100MG CAPSULE PO SCH ×2 (09:41→20:20)
[2022-12-18] MEDS: PARoxetine 20MG TABLET PO SCH (09:41)
[2022-12-18] MEDS: ACETAMINOPH W/CODEINE #3 TAB UD PO PRN ×2 (09:41→17:29)
[2022-12-18] MEDS: FAMOTIDINE 20 MG TAB PO SCH (09:42)
[2022-12-18] MEDS: PANTOPRAZOLE 40MG TAB (PROTONIX) PO SCH (09:42)
[2022-12-18] MEDS: MAG SULF 1GM/100ML (MAG RUN) 1 GM in IV 1 EA IV SCH ×2 (09:43→10:25)
[2022-12-18] MEDS: D5W/LR 1,000 ML IV SCH ×2 (10:48→20:22)
[2022-12-18 14:00] VITALS: BP 115/78
[2022-12-18 20:00] VITALS: BP 119/78
[2022-12-18] MEDS: SUCRALFATE 1 GM TAB PO SCH (20:20)
[2022-12-19] MEDS: HYDROMORPHONE HCL 0.5 MG/ 0.5 ML SYRINGE IV PRN (00:44)
[2022-12-19 03:02] LABS: APPEARANCE, URINE MANUAL TURBID (CLEAR); COLOR, URINE MANUAL RED (YELLOW)
[2022-12-19 03:03] LABS: BILIRUBIN, URINE MANUAL OBSCURED (NEGATIVE); BLOOD URINE MANUAL OBSCURED (NEGATIVE); GLUCOSE, URINE (UA) MANUAL OBSCURED mg/dL (NEGATIVE); KETONE, URINE MANUAL OBSCURED mg/dL (NEGATIVE); LEUKOCYTE ESTERASE, URINE MAN OBSCURED (NEGATIVE); NITRITE, URINE MANUAL OBSCURED (NEGATIVE); PH,URINE MAN OBSCURED UNITS (5.0 - 7.0); PROTEIN, URINE MANUAL OBSCURED mg/dL (NEGATIVE); SPECIFIC GRAVITY,URINE MANUAL 1.012 (1.002-1.035); UROBILINOGEN, URINE MANUAL OBSCURED mg/dl (NORMAL)
[2022-12-19 03:04] LABS: AMORPHOUS SEDIMENT, URINE LARGE AMOUNT (NEGATIVE); BACTERIA, URINE LARGE AMOUNT; HYALINE CAST, URINE NONE SEEN /lpf (0-1); MUCUS, URINE SMALL AMOUNT (NEGATIVE); RBC, URINE TNTC /hpf (0-3); SQUAMOUS EPITHELIAL CELL URINE SMALL AMOUNT /hpf (SMALL AMT); WBC, URINE TNTC /hpf (0-3)
[2022-12-19 06:00] VITALS: BP 112/63
[2022-12-19] MEDS: D5W/LR 1,000 ML IV SCH ×2 (06:16→16:10)
[2022-12-19 06:30] LABS: HEMATOCRIT 30.9 % (36.0-47.0); HEMOGLOBIN 10.1 g/dl (12.0-15.5); MEAN CORPUSCULAR HEMOGLOBIN 30.8 pg (27.0-33.0); MEAN CORPUSCULAR HGB CONC 32.7 g/dl (32.0-36.5); MEAN CORPUSCULAR VOLUME 94.2 fl (80.0-96.0); PLATELET COUNT, AUTOMATED 236 10^3/uL (150-450); RED BLOOD COUNT 3.28 10^6/uL (4.00-5.40); WHITE BLOOD COUNT 8.1 10^3/uL (4.0-10.0)
[2022-12-19 07:01] LABS: ALBUMIN 2.6 G/DL (3.2-5.2); CALCIUM LEVEL 8.5 MG/DL (8.5-10.1); CREATININE FOR GFR 2.16 MG/DL (0.55-1.30); GLOMERULAR FILTRATION RATE 26.2 (>58); MAGNESIUM LEVEL 1.8 MG/DL (1.8-2.4); PHOSPHORUS LEVEL 3.6 MG/DL (2.5-4.9); POTASSIUM SERUM 4.3 MMOL/L (3.5-5.1)
[2022-12-19] MEDS: FAMOTIDINE 20 MG TAB PO SCH (08:43)
[2022-12-19] MEDS: PANTOPRAZOLE 40MG TAB (PROTONIX) PO SCH (08:43)
[2022-12-19] MEDS: LIDOCAINE 5% (LIDODERM) PATCH TD SCH (08:43)
[2022-12-19] MEDS: DOCUSATE SODIUM 100MG CAPSULE PO SCH ×2 (08:43→19:44)
[2022-12-19] MEDS: PARoxetine 20MG TABLET PO SCH (08:43)
[2022-12-19] MEDS ORDERED: CALCITRIOL 0.25 MCG CAP (S0169) PO SCH (09:00)
[2022-12-19] MEDS: cefTRIAXone SOD 1 GM in D5W MINI-BAG PLUS 50 ML IV SCH (12:32)
[2022-12-19 14:00] VITALS: BP 111/63
[2022-12-19] MEDS: SUCRALFATE 1 GM TAB PO SCH (19:44)
[2022-12-19 21:18] VITALS: BP 129/89
[2022-12-19] MEDS: ACETAMINOPH W/CODEINE #3 TAB UD PO PRN (23:41)
[2022-12-20] MEDS: D5W/LR 1,000 ML IV SCH ×2 (03:17→12:10)
[2022-12-20 05:31] VITALS: BP 123/86
[2022-12-20 06:37] LABS: HEMATOCRIT 30.3 % (36.0-47.0); HEMOGLOBIN 9.7 g/dl (12.0-15.5); MEAN CORPUSCULAR HEMOGLOBIN 30.4 pg (27.0-33.0); PLATELET COUNT, AUTOMATED 256 10^3/uL (150-450); RED BLOOD COUNT 3.19 10^6/uL (4.00-5.40); WHITE BLOOD COUNT 7.6 10^3/uL (4.0-10.0)
[2022-12-20 06:47] LABS: ALBUMIN 2.4 G/DL (3.2-5.2); CALCIUM LEVEL 8.3 MG/DL (8.5-10.1); CREATININE FOR GFR 1.81 MG/DL (0.55-1.30); GLOMERULAR FILTRATION RATE 32.2 (>58); MAGNESIUM LEVEL 1.7 MG/DL (1.8-2.4); PHOSPHORUS LEVEL 4.7 MG/DL (2.5-4.9); POTASSIUM SERUM 4.3 MMOL/L (3.5-5.1)
[2022-12-20] MEDS: DOCUSATE SODIUM 100MG CAPSULE PO SCH (08:06)
[2022-12-20] MEDS: PANTOPRAZOLE 40MG TAB (PROTONIX) PO SCH (08:06)
[2022-12-20] MEDS: FAMOTIDINE 20 MG TAB PO SCH (08:06)
[2022-12-20] MEDS: PARoxetine 20MG TABLET PO SCH (08:06)
[2022-12-20] MEDS: LIDOCAINE 5% (LIDODERM) PATCH TD SCH (08:07)
[2022-12-20] MEDS ORDERED: CYANOCOBALAMIN 500 MCG TAB PO SCH (09:00)
[2022-12-20] MEDS ORDERED: FOLIC ACID 1MG TAB PO SCH (09:00)
[2022-12-20] MEDS ORDERED: FERROUS SULFATE 325MG TAB PO SCH (09:00)
[2022-12-20] MEDS: MAG SULF 1GM/100ML (MAG RUN) 1 GM in IV 1 EA IV SCH ×2 (09:09→11:11)
[2022-12-20 10:27] LABS: PERCENT SATURATION 8.3 % (13.2-45.0)
[2022-12-20 10:29] LABS: FOLATE 4.32 NG/ML (>5.4)
[2022-12-20 10:30] LABS: FERRITIN 79.4 NG/ML (7.3-270.7)
[2022-12-20] MEDS ORDERED: CEFD300C41 PO (11:01)
[2022-12-20] MEDS ORDERED: FERR1TAB8 PO (11:20)
[2022-12-20] MEDS ORDERED: FOLI1TAB11 PO (11:20)
[2022-12-20] MEDS ORDERED: VITA500T40 PO (11:20)
[2022-12-20] MEDS: cefTRIAXone SOD 1 GM in D5W MINI-BAG PLUS 50 ML IV SCH (12:00)
== END 2022-12-20 13:43 | disposition home or self-care (01) | DRG 469 ==
LOC: M ED 07:37 → M ED INP 13:35 → M MSPAV 15:35
PROVIDERS: ADMIT Student in an Organized Health Care Education/Training Program; ATTEND Student in an Organized Health Care Education/Training Program
DX: N17.9 Acute kidney failure, unspecified (principal); Q61.2 Polycystic kidney, adult type; D62 Acute posthemorrhagic anemia; K31.84 Gastroparesis; D52.9 Folate deficiency anemia, unspecified; K76.89 Other specified diseases of liver; K21.00 Gastro-esophageal reflux disease with esophagitis, without bleeding; M79.7 Fibromyalgia; G43.909 Migraine, unspecified, not intractable, without status migrainosus; F17.200 Nicotine dependence, unspecified, uncomplicated; I12.9 Hypertensive chronic kidney disease with stage 1 through stage 4 chronic kidney disease, or unspecified chronic kidney disease; F32.A Depression, unspecified; E55.9 Vitamin D deficiency, unspecified; N20.0 Calculus of kidney; N39.0 Urinary tract infection, site not specified; D63.1 Anemia in chronic kidney disease; N18.32 Chronic kidney disease, stage 3b; Z79.899 Other long term (current) drug therapy; Z88.2 Allergy status to sulfonamides; Z88.8 Allergy status to other drugs, medicaments and biological substances; Z91.048 Other nonmedicinal substance allergy status; Z91.041 Radiographic dye allergy status

== ENCOUNTER → 2022-12-24 | Outpatient (CLI) | payer OTHER ==
[~2022-12-24] MED LIST changes: +CEFD300C41 PO; +FERR1TAB8 PO; +FOLI1TAB11 PO; +VITA500T40 PO
[2022-12-24 21:06] LABS: HEMATOCRIT 37.4 % (36.0-47.0); HEMOGLOBIN 11.7 g/dl (12.0-15.5); MEAN CORPUSCULAR HEMOGLOBIN 30.9 pg (27.0-33.0); MEAN CORPUSCULAR HGB CONC 31.3 g/dl (32.0-36.5); MEAN CORPUSCULAR VOLUME 98.7 fl (80.0-96.0); PLATELET COUNT, AUTOMATED 454 10^3/uL (150-450); RED BLOOD COUNT 3.79 10^6/uL (4.00-5.40); WHITE BLOOD COUNT 9.9 10^3/uL (4.0-10.0)
[2022-12-24 21:29] LABS: CALCIUM LEVEL 9.7 MG/DL (8.5-10.1); CREATININE FOR GFR 2.09 MG/DL (0.55-1.30); GLOMERULAR FILTRATION RATE 27.3 (>58)
== END ==
LOC: M WUC 15:25
PROVIDERS: ATTEND Internal Medicine
DX: D64.9 Anemia, unspecified (principal); Q61.3 Polycystic kidney, unspecified

== ENCOUNTER → 2023-01-24 | Outpatient (REF) | payer OTHER ==
[~2023-01-24] MED LIST changes: +ONDA-195 PO; +VITA500T41 PO
[2023-01-24 15:50] LABS: CLOSTRIDIUM DIFFICILE PCR POSITIVE (NEGATIVE)
== END ==
LOC: M LAB REF 08:00
PROVIDERS: ATTEND Urology
DX: R19.7 Diarrhea, unspecified (principal)

== ENCOUNTER → 2023-04-03 | Outpatient (CLI) | payer OTHER | LOC: M WHC 12:36 | PROVIDERS: ATTEND Internal Medicine | DX: Z12.31 Encounter for screening mammogram for malignant neoplasm of breast (principal) ==

== ENCOUNTER → 2023-05-15 | Outpatient (CLI) | payer OTHER ==
[2023-05-15 12:50] LABS: HEMATOCRIT 37.1 % (36.0-47.0); HEMOGLOBIN 11.6 g/dl (12.0-15.5); MEAN CORPUSCULAR HEMOGLOBIN 29.8 pg (27.0-33.0); MEAN CORPUSCULAR HGB CONC 31.3 g/dl (32.0-36.5); MEAN CORPUSCULAR VOLUME 95.4 fl (80.0-96.0); PLATELET COUNT, AUTOMATED 424 10^3/uL (150-450); RED BLOOD COUNT 3.89 10^6/uL (4.00-5.40); WHITE BLOOD COUNT 9.4 10^3/uL (4.0-10.0)
[2023-05-15 13:25] LABS: ALBUMIN 3.5 G/DL (3.2-5.2); ALKALINE PHOSPHATASE 219 U/L (46-116); ALT/SGPT < 9 U/L (7.0-40); AST/SGOT 11 U/L (<34); BILIRUBIN,TOTAL 0.3 MG/DL (0.3-1.2); BLOOD UREA NITROGEN 23 MG/DL (9-23); CALCIUM LEVEL 9.6 MG/DL (8.5-10.1); CARBON DIOXIDE LEVEL 26 MMOL/L (20-31); CHLORIDE LEVEL 101 MMOL/L (98-107); CREATININE FOR GFR 2.85 MG/DL (0.55-1.30); GLOMERULAR FILTRATION RATE 19.1 (>58); GLUCOSE, FASTING 100 MG/DL (60-100); POTASSIUM SERUM 5.4 MMOL/L (3.5-5.1); SODIUM LEVEL 136 MMOL/L (136-145); TOTAL PROTEIN 7.2 G/DL (5.7-8.2)
== END ==
LOC: M WUC 10:03
PROVIDERS: ATTEND Internal Medicine
DX: Q61.3 Polycystic kidney, unspecified (principal); R06.00 Dyspnea, unspecified

== ENCOUNTER → 2023-09-23 | Outpatient (CLI) | payer OTHER ==
[~2023-09-23] MED LIST changes: +CEFD1CAP9 PO; -CEFD300C41 PO; +METO1TAB87
== END ==
LOC: M WUC 14:38
PROVIDERS: ATTEND Internal Medicine
DX: M54.2 Cervicalgia (principal)

== ENCOUNTER → 2024-03-24 | Outpatient (REF) | payer OTHER ==
[~2024-03-24] MED LIST changes: +AMIT50TA; +LEVO175T2; +OXYC1TAB23; +ROPI5TAB19
[2024-03-24 19:19] LABS: APPEARANCE, URINE HAZY (CLEAR); BACTERIA, URINE AUTO 1+ (NEGATIVE); BILIRUBIN, URINE AUTO NEGATIVE (NEGATIVE); BLOOD, URINE BLOOD 3+ (NEGATIVE); COLOR, URINE YELLOW (YELLOW); GLUCOSE, URINE (UA) AUTO NEGATIVE (NEGATIVE); KETONE, URINE AUTO NEGATIVE (NEGATIVE); LEUKOCYTE ESTERASE, URINE AUTO 2+ (NEGATIVE); MUCUS, URINE SMALL (NEGATIVE); NITRITE, URINE AUTO NEGATIVE (NEGATIVE); PROTEIN, URINE AUTO 2+ mg/dL (NEGATIVE); RBC, URINE AUTO 26 /HPF (0-3); SPECIFIC GRAVITY URINE AUTO 1.009 (1.002-1.035); SQUAMOUS EPITHELIAL CELL UR AU 9 /HPF (0-6); UROBILINOGEN, URINE AUTO 0.2 mg/dL (0.0-2.0); WBC, URINE AUTO 57 /HPF (0-3)
== END ==
LOC: M LAB REF 18:48
PROVIDERS: ATTEND Physician Assistant
DX: R31.9 Hematuria, unspecified (principal)

== ENCOUNTER → 2024-03-24 | Outpatient (CLI) | payer OTHER | LOC: M LAB 18:04 | PROVIDERS: ATTEND Internal Medicine | DX: R31.9 Hematuria, unspecified (principal); Z53.9 Procedure and treatment not carried out, unspecified reason ==

== ENCOUNTER 2024-06-25 20:40 | Emergency (ER) | payer OTHER ==
[~2024-06-25 20:40] MED LIST changes: -LEVO175T2; +LEVO175T2 PO; -METO1TAB87; +METO1TAB87 PO; -ROPI5TAB19; +ROPI5TAB19 PO
[2024-06-25 20:45] VITALS: TEMP 97.6
[2024-06-25 21:20] LABS: BASO # 0.1 10^3/uL (0.0-0.2); BASO % 1.3 % (0.0-1.0); EOS # 0.4 10^3/uL (0.0-0.5); EOS % 4.2 % (0.0-3.0); HEMATOCRIT 37.2 % (36.0-47.0); LYMPH # 1.6 10^3/uL (1.5-5.0); LYMPH % 19.3 % (24.0-44.0); MEAN CORPUSCULAR HEMOGLOBIN 31.3 pg (27.0-33.0); MEAN CORPUSCULAR HGB CONC 32.3 g/dl (32.0-36.5); MEAN CORPUSCULAR VOLUME 96.9 fl (80.0-96.0); MONO # 0.7 10^3/uL (0.0-0.8); MONO % 8.8 % (2.0-8.0); NEUTROPHILS # 5.6 10^3/uL (1.5-8.5); PLATELET COUNT, AUTOMATED 245 10^3/uL (150-450); RED BLOOD COUNT 3.84 10^6/uL (4.00-5.40); WHITE BLOOD COUNT 8.4 10^3/uL (4.0-10.0)
[2024-06-25 21:50] LABS: CALCIUM LEVEL 10.2 MG/DL (8.5-10.1); CREATININE FOR GFR 3.94 MG/DL (0.55-1.30); POTASSIUM SERUM 3.7 MMOL/L (3.5-5.1)
[2024-06-25 22:10] LABS: ALBUMIN 3.3 G/DL (3.2-5.2); BILIRUBIN,DIRECT 0.1 MG/DL (<0.4); BILIRUBIN,TOTAL 0.4 MG/DL (0.3-1.2); TOTAL PROTEIN 7.4 G/DL (5.7-8.2)
[2024-06-25] MEDS: HYDROMORPHONE HCL 0.5 MG/ 0.5 ML SYRINGE IV PRN (22:41)
[2024-06-25 22:59] LABS: INR 0.94; PROTHROMBIN TIME 12.9 SECONDS (12.5-14.5)
[2024-06-26 00:30] VITALS: O2SAT 95
[2024-06-26] MEDS: HYDROMORPHONE HCL 0.5 MG/ 0.5 ML SYRINGE IV PRN (00:49)
[2024-06-26] MEDS ORDERED: HYDR-4517 PO (00:50)
[2024-06-26] MEDS ORDERED: hydrocodon (00:50)
[2024-06-26 00:51] VITALS: BP 155/82
[2024-06-28] MEDS ORDERED: CABO60TA PO ×2 (13:50→17:17)
[2024-06-28] MEDS ORDERED: HYDR-4517 PO (13:56)
[2024-07-07] MEDS ORDERED: SEVE800T3 PO (13:23)
[2024-07-14] MEDS ORDERED: ACET-683 PO (14:27)
[2024-07-14] MEDS ORDERED: GABA-1171 PO (15:57)
[2024-07-14] MEDS ORDERED: HYDR-4517 PO (15:57)
== END 2024-06-26 01:15 | disposition home or self-care (01) ==
LOC: M ED 20:40
DX: M54.59 Other low back pain (principal); C79.51 Secondary malignant neoplasm of bone; Z85.528 Personal history of other malignant neoplasm of kidney; R93.89 Abnormal findings on diagnostic imaging of other specified body structures; R91.8 Other nonspecific abnormal finding of lung field; Z92.25 Personal history of immunosuppression therapy; Z90.5 Acquired absence of kidney; Z79.899 Other long term (current) drug therapy; Z88.2 Allergy status to sulfonamides; Z88.8 Allergy status to other drugs, medicaments and biological substances; Z91.041 Radiographic dye allergy status; Z91.89 Other specified personal risk factors, not elsewhere classified
CPT/HCPCS: 71250; 72125; 72128; 72131; 74176; 80048; 80076; 81001; 83605; 85025; 85610; 87086; 96374; 96376; 99284; J1171

== ENCOUNTER → 2024-07-07 | Outpatient (CLI) | payer OTHER ==
[~2024-07-07] MED LIST changes: +CABO60TA PO; +HYDR-4517 PO; +LEVO175T2; -LEVO175T2 PO; +METO1TAB87; -METO1TAB87 PO; +ROPI5TAB19; -ROPI5TAB19 PO; +SEVE800T3 PO; +hydrocodon
== END ==
LOC: M ONCR 12:48
PROVIDERS: ATTEND General Practice
DX: C79.51 Secondary malignant neoplasm of bone (principal); C64.1 Malignant neoplasm of right kidney, except renal pelvis; Q61.2 Polycystic kidney, adult type; Z79.622 Long term (current) use of Janus kinase inhibitor; Z79.890 Hormone replacement therapy; Z79.899 Other long term (current) drug therapy; Z84.1 Family history of disorders of kidney and ureter; Z88.1 Allergy status to other antibiotic agents; Z88.2 Allergy status to sulfonamides; Z88.8 Allergy status to other drugs, medicaments and biological substances; Z90.5 Acquired absence of kidney; Z90.710 Acquired absence of both cervix and uterus; Z91.041 Radiographic dye allergy status; Z92.3 Personal history of irradiation

== ENCOUNTER → 2024-07-14 | Outpatient (CLI) | payer OTHER ==
[~2024-07-14] VITALS: Ht 167.6 cm; Wt 86.4 kg
[~2024-07-14] MED LIST changes: +ACET-683 PO; +DEXA4TA PO; +GABA-1171 PO
[2024-07-14 14:24] VITALS: BP 165/107; O2SAT 99
== END ==
LOC: M PAL 14:03
PROVIDERS: ATTEND Nurse Practitioner Adult Health
DX: G89.3 Neoplasm related pain (acute) (chronic) (principal); C79.51 Secondary malignant neoplasm of bone; C64.1 Malignant neoplasm of right kidney, except renal pelvis; K76.9 Liver disease, unspecified; Q61.2 Polycystic kidney, adult type; Z90.5 Acquired absence of kidney; Z92.25 Personal history of immunosuppression therapy; Z51.5 Encounter for palliative care; Z90.710 Acquired absence of both cervix and uterus; Z84.1 Family history of disorders of kidney and ureter; Z91.041 Radiographic dye allergy status; Z91.02 Food additives allergy status; Z88.1 Allergy status to other antibiotic agents; Z88.2 Allergy status to sulfonamides; Z88.8 Allergy status to other drugs, medicaments and biological substances; Z79.890 Hormone replacement therapy; Z79.899 Other long term (current) drug therapy

== ENCOUNTER 2024-07-20 08:46 | Outpatient (RCR) | payer OTHER ==
[~2024-07-20 08:46] MED LIST changes: -DEXA4TA PO; -LEVO175T2; +LEVO175T2 PO; -METO1TAB87; +METO1TAB87 PO; -ROPI5TAB19; +ROPI5TAB19 PO
[2024-07-20] MEDS ORDERED: DEXA4TA PO (09:05)
== END 2024-07-23 ==
LOC: M ONCR 08:46
PROVIDERS: ATTEND General Practice
DX: Z51.0 Encounter for antineoplastic radiation therapy (principal); C79.51 Secondary malignant neoplasm of bone

== ENCOUNTER 2024-07-27 12:04 | Emergency (ER) | payer OTHER ==
[~2024-07-27] VITALS: Ht 167.6 cm; Wt 86.2 kg
[~2024-07-27 12:04] MED LIST changes: +DEXA4TA PO
[2024-07-27] MEDS: ASPIRIN 81MG CHEW TABLET PO ONE (12:33)
[2024-07-27] MEDS: NITROGLYCERIN 0.4MG SUBL TABLET SL PRN (12:35)
[2024-07-27 12:48] LABS: BASO % 0.3 % (0.0-1.0); EOS # 0.2 10^3/uL (0.0-0.5); EOS % 1.6 % (0.0-3.0); HEMOGLOBIN 12.8 g/dl (12.0-15.5); LYMPH % 8.8 % (24.0-44.0); MEAN CORPUSCULAR HEMOGLOBIN 31.3 pg (27.0-33.0); MEAN CORPUSCULAR HGB CONC 32.8 g/dl (32.0-36.5); MEAN CORPUSCULAR VOLUME 95.4 fl (80.0-96.0); MONO # 0.8 10^3/uL (0.0-0.8); MONO % 6.6 % (2.0-8.0); NEUTROPHILS # 9.3 10^3/uL (1.5-8.5); NEUTROPHILS % 82.2 % (36.0-66.0); PLATELET COUNT, AUTOMATED 304 10^3/uL (150-450); RED BLOOD COUNT 4.09 10^6/uL (4.00-5.40); WHITE BLOOD COUNT 11.3 10^3/uL (4.0-10.0)
[2024-07-27] MEDS ORDERED: FAMO40TA3 PO (13:38)
[2024-07-27] MEDS ORDERED: HYDR-4517 PO (13:38)
[2024-07-27] MEDS ORDERED: CABO60TA PO (13:38)
[2024-07-27] MEDS ORDERED: GABA-1171 PO (13:38)
[2024-07-27] MEDS ORDERED: HOME MED LIST COMPLETE! XX SCH (13:40)
[2024-07-27 14:26] LABS: LIPASE 29 U/L (12-53)
[2024-07-27 14:28] LABS: CPK CREATINE PHOSPHOKINASE 57 U/L (34-145)
[2024-07-27 14:31] LABS: ALBUMIN 2.4 G/DL (3.2-5.2); ALKALINE PHOSPHATASE 143 U/L (35-104); ALT/SGPT 19 U/L (7.0-40); AST/SGOT 21 U/L (<34); BILIRUBIN,DIRECT 0.1 MG/DL (<0.4); BILIRUBIN,TOTAL 0.3 MG/DL (0.3-1.2); BLOOD UREA NITROGEN 31 MG/DL (9-23); CALCIUM LEVEL 8.7 MG/DL (8.5-10.1); CARBON DIOXIDE LEVEL 29 MMOL/L (20-31); CHLORIDE LEVEL 100 MMOL/L (98-107); CK-MB VALUE MASS < 1.0 NG/ML (<3.6); CREATININE FOR GFR 2.76 MG/DL (0.55-1.30); GLOMERULAR FILTRATION RATE 19.6 (>58); GLUCOSE, FASTING 121 MG/DL (60-100); MB/CK RELATIVE INDEX 1.75 (< OR =4); POTASSIUM SERUM 3.1 MMOL/L (3.5-5.1); SODIUM LEVEL 136 MMOL/L (136-145); TOTAL PROTEIN 6.1 G/DL (5.7-8.2)
[2024-07-27 15:16] LABS: CK-MB VALUE MASS < 1.0 NG/ML (<3.6)
[2024-07-27] MEDS: POTASSIUM CHLORIDE 10MEQ SR TABLET PO ONE (15:17)
[2024-07-27 15:18] VITALS: BP 171/99
[2024-07-27] MEDS: METOPROLOL TART 25 MG TABLET PO ONE (15:18)
[2024-07-27 15:25] LABS: CPK CREATINE PHOSPHOKINASE 59 U/L (34-145); MB/CK RELATIVE INDEX 1.69 (< OR =4)
[2024-07-27 16:16] VITALS: BP 158/90; TEMP 98; O2SAT 98
[2024-07-28] MEDS ORDERED: SIME1CAP4 PO (02:45)
[2024-07-28] MEDS ORDERED: HYDR25TA87 PO (02:45)
== END 2024-07-27 16:33 | disposition home or self-care (01) ==
LOC: M ED 12:04
DX: I10 Essential (primary) hypertension (principal); N18.6 End stage renal disease; Z99.2 Dependence on renal dialysis; Z85.528 Personal history of other malignant neoplasm of kidney; F17.200 Nicotine dependence, unspecified, uncomplicated; Z95.818 Presence of other cardiac implants and grafts; Z79.899 Other long term (current) drug therapy; Z91.041 Radiographic dye allergy status; Z88.2 Allergy status to sulfonamides; Z88.8 Allergy status to other drugs, medicaments and biological substances

== ENCOUNTER 2024-07-27 23:22 | Emergency (ER) | payer OTHER ==
[~2024-07-27] VITALS: Ht 162.6 cm; Wt 84.1 kg
[~2024-07-27 23:22] MED LIST changes: +FAMO40TA3 PO
[2024-07-28 00:15] LABS: BASO % 0.2 % (0.0-1.0); EOS # 0.1 10^3/uL (0.0-0.5); EOS % 1.5 % (0.0-3.0); HEMOGLOBIN 12.3 g/dl (12.0-15.5); LYMPH # 0.6 10^3/uL (1.5-5.0); LYMPH % 6.7 % (24.0-44.0); MEAN CORPUSCULAR HEMOGLOBIN 30.6 pg (27.0-33.0); MEAN CORPUSCULAR HGB CONC 32.4 g/dl (32.0-36.5); MEAN CORPUSCULAR VOLUME 94.5 fl (80.0-96.0); MONO # 0.6 10^3/uL (0.0-0.8); MONO % 6.5 % (2.0-8.0); NEUTROPHILS # 7.5 10^3/uL (1.5-8.5); NEUTROPHILS % 84.8 % (36.0-66.0); PLATELET COUNT, AUTOMATED 281 10^3/uL (150-450); RED BLOOD COUNT 4.02 10^6/uL (4.00-5.40); WHITE BLOOD COUNT 8.8 10^3/uL (4.0-10.0)
[2024-07-28 00:37] LABS: CK-MB VALUE MASS < 1.0 NG/ML (<3.6)
[2024-07-28 00:42] LABS: BLOOD UREA NITROGEN 32 MG/DL (9-23); CALCIUM LEVEL 8.9 MG/DL (8.5-10.1); CARBON DIOXIDE LEVEL 22 MMOL/L (20-31); CHLORIDE LEVEL 103 MMOL/L (98-107); CPK CREATINE PHOSPHOKINASE 72 U/L (34-145); CREATININE FOR GFR 2.94 MG/DL (0.55-1.30); GLOMERULAR FILTRATION RATE 18.2 (>58); GLUCOSE, FASTING 129 MG/DL (60-100); MB/CK RELATIVE INDEX 1.38 (< OR =4); POTASSIUM SERUM 4.1 MMOL/L (3.5-5.1); SODIUM LEVEL 136 MMOL/L (136-145)
[2024-07-28 01:12] VITALS: BP 174/103
[2024-07-28] MEDS: hydrALAZINE 20MG/ML 1ML VIAL IV ONE (01:12)
[2024-07-28 01:29] LABS: CK-MB VALUE MASS < 1.0 NG/ML (<3.6)
[2024-07-28 01:34] LABS: CPK CREATINE PHOSPHOKINASE 71 U/L (34-145)
[2024-07-28] MEDS ORDERED: SIME1CAP4 PO (02:45)
[2024-07-28] MEDS ORDERED: HYDR25TA87 PO (02:45)
[2024-07-28 02:47] VITALS: BP 172/68; TEMP 98; O2SAT 98
== END 2024-07-28 02:53 | disposition home or self-care (01) ==
LOC: M ED 23:22
DX: I10 Essential (primary) hypertension (principal); C64.1 Malignant neoplasm of right kidney, except renal pelvis; K21.9 Gastro-esophageal reflux disease without esophagitis; Z87.11 Personal history of peptic ulcer disease; F17.200 Nicotine dependence, unspecified, uncomplicated; Z79.899 Other long term (current) drug therapy; Z91.041 Radiographic dye allergy status; Z88.2 Allergy status to sulfonamides; Z88.8 Allergy status to other drugs, medicaments and biological substances
CPT/HCPCS: 71045; 80047; 80048; 82550; 82553; 84484; 85025; 93005; 93041; 94760; 96374; 99284; J0360

== ENCOUNTER 2024-08-02 08:45 | Outpatient (RCR) | payer OTHER ==
[~2024-08-02 08:45] MED LIST changes: +HYDR25TA87 PO; +SIME1CAP4 PO
[2024-08-15] MEDS ORDERED: PROC10TA5 PO (11:42)
[2024-08-15] MEDS ORDERED: ONDA-195 PO (11:42)
[2024-08-19] MEDS ORDERED: HYDR-4517 PO (03:52)
[2024-08-19] MEDS ORDERED: MEDR4PAK PO (03:55)
== END 2024-08-23 ==
LOC: M ONCR 08:45
PROVIDERS: ATTEND General Practice
DX: Z51.0 Encounter for antineoplastic radiation therapy (principal); C79.51 Secondary malignant neoplasm of bone

== ENCOUNTER 2024-08-02 12:18 | Emergency (ER) | payer OTHER ==
[~2024-08-02] VITALS: Ht 167.6 cm; Wt 85.5 kg
[2024-08-02] MEDS: LABETALOL 100MG/20ML VIAL IV STA ×2 (13:17→14:05)
[2024-08-02 13:20] VITALS: BP 161/100; TEMP 97.4; O2SAT 98
[2024-08-02] MEDS: ASPIRIN 325 MG TAB PO ONE (13:43)
[2024-08-02] MEDS: CLOPIDOGREL 300 MG TAB (PLAVIX) PO STA (13:43)
[2024-08-02] MEDS: ATORVASTATIN 20 MG TAB PO ONE (13:43)
[2024-08-02 13:47] LABS: BASO # 0.1 10^3/uL (0.0-0.2); BASO % 0.6 % (0.0-1.0); EOS # 0.2 10^3/uL (0.0-0.5); LYMPH # 0.7 10^3/uL (1.5-5.0); LYMPH % 8.5 % (24.0-44.0); MEAN CORPUSCULAR HEMOGLOBIN 31.6 pg (27.0-33.0); MEAN CORPUSCULAR HGB CONC 34.3 g/dl (32.0-36.5); MEAN CORPUSCULAR VOLUME 92.1 fl (80.0-96.0); MONO # 0.5 10^3/uL (0.0-0.8); MONO % 6.2 % (2.0-8.0); NEUTROPHILS # 6.9 10^3/uL (1.5-8.5); NEUTROPHILS % 82.2 % (36.0-66.0); PLATELET COUNT, AUTOMATED 238 10^3/uL (150-450); WHITE BLOOD COUNT 8.4 10^3/uL (4.0-10.0)
[2024-08-02 13:59] LABS: INR 0.96; PARTIAL THROMBOPLASTIN TIME 31.8 SECONDS (24.8-34.2); PROTHROMBIN TIME 13.1 SECONDS (12.5-14.5)
[2024-08-02 14:00] VITALS: O2SAT 97
[2024-08-02 14:03] VITALS: TEMP 98.9
[2024-08-02 14:05] VITALS: BP 192/109
[2024-08-02 14:07] VITALS: BP 178/103
[2024-08-02 14:17] LABS: BLOOD UREA NITROGEN 16 MG/DL (9-23); CALCIUM LEVEL 8.3 MG/DL (8.5-10.1); CARBON DIOXIDE LEVEL 26 MMOL/L (20-31); CHLORIDE LEVEL 95 MMOL/L (98-107); CK-MB VALUE MASS < 1.0 NG/ML (<3.6); CPK CREATINE PHOSPHOKINASE 68 U/L (34-145); CREATININE FOR GFR 2.93 MG/DL (0.55-1.30); GLOMERULAR FILTRATION RATE 18.3 (>58); GLUCOSE, FASTING 103 MG/DL (60-100); MB/CK RELATIVE INDEX 1.47 (< OR =4); POTASSIUM SERUM 3.9 MMOL/L (3.5-5.1); SODIUM LEVEL 131 MMOL/L (136-145)
[2024-10-04] MEDS ORDERED: B-12100010 PO (14:24)
[2024-10-04] MEDS ORDERED: ACET-907 PO (14:24)
== END 2024-08-02 14:10 | disposition short-term general hospital (02) ==
LOC: M ED 12:18
DX: I63.9 Cerebral infarction, unspecified (principal); Q61.2 Polycystic kidney, adult type; I12.0 Hypertensive chronic kidney disease with stage 5 chronic kidney disease or end stage renal disease; Z99.2 Dependence on renal dialysis; I73.9 Peripheral vascular disease, unspecified; C64.1 Malignant neoplasm of right kidney, except renal pelvis; C79.01 Secondary malignant neoplasm of right kidney and renal pelvis; F17.200 Nicotine dependence, unspecified, uncomplicated; Z79.899 Other long term (current) drug therapy; Z91.041 Radiographic dye allergy status; Z88.2 Allergy status to sulfonamides; Z88.8 Allergy status to other drugs, medicaments and biological substances; Z91.89 Other specified personal risk factors, not elsewhere classified
CPT/HCPCS: 70450; 71045; 80047; 80048; 82550; 82553; 84484; 85025; 85610; 85730; 93005; 93041; 94760; 96374; 96376; 99291; 99292; J1920

== ENCOUNTER 2024-08-18 20:10 | Emergency (ER) | payer OTHER ==
[~2024-08-18] VITALS: Ht 167.6 cm; Wt 82.5 kg
[~2024-08-18 20:10] MED LIST changes: +PROC10TA5 PO
[2024-08-18] MEDS: MORPHINE 4 MG/ML 1ML VIAL IV ONE (23:50)
[2024-08-19] MEDS: ONDANSETRON 4MG 2ML VIAL IV ONE (00:25)
[2024-08-19] MEDS ORDERED: HYDR-4517 PO (03:52)
[2024-08-19] MEDS ORDERED: MEDR4PAK PO (03:55)
[2024-08-19] MEDS ORDERED: predniSONE 20 MG TAB PO ONE (03:55)
[2024-08-19] MEDS: ANEXSIA, NORCO 7.5MG/325MG TABLET(HYDROCODONE/APAP) PO ONE (04:02)
[2024-08-19 04:05] VITALS: BP 159/102; TEMP 97.9; O2SAT 95
== END 2024-08-19 04:07 | disposition home or self-care (01) ==
LOC: M ED 20:10
DX: M54.50 Low back pain, unspecified (principal); C64.9 Malignant neoplasm of unspecified kidney, except renal pelvis; C79.51 Secondary malignant neoplasm of bone; N28.1 Cyst of kidney, acquired; I10 Essential (primary) hypertension; K76.0 Fatty (change of) liver, not elsewhere classified; K21.9 Gastro-esophageal reflux disease without esophagitis; K31.84 Gastroparesis; G43.909 Migraine, unspecified, not intractable, without status migrainosus; M79.7 Fibromyalgia; Z90.5 Acquired absence of kidney; Z79.899 Other long term (current) drug therapy; Z91.041 Radiographic dye allergy status; Z91.02 Food additives allergy status; Z88.2 Allergy status to sulfonamides; Z88.8 Allergy status to other drugs, medicaments and biological substances
CPT/HCPCS: 72131; 74176; 96374; 96375; 99284; J2405

== ENCOUNTER → 2024-08-22 | Outpatient (CLI) | payer OTHER ==
[~2024-08-22] VITALS: Ht 167.6 cm; Wt 83.6 kg
[~2024-08-22] MED LIST changes: +MEDR4PAK PO
[2024-08-22 13:35] VITALS: BP 175/109; O2SAT 98
== END ==
LOC: M PAL 13:24
PROVIDERS: ATTEND Family Medicine
DX: Z51.5 Encounter for palliative care (principal); C64.9 Malignant neoplasm of unspecified kidney, except renal pelvis; C79.51 Secondary malignant neoplasm of bone; C79.89 Secondary malignant neoplasm of other specified sites; R11.0 Nausea; R19.4 Change in bowel habit; G89.3 Neoplasm related pain (acute) (chronic); Z92.21 Personal history of antineoplastic chemotherapy; Z92.3 Personal history of irradiation; Z92.25 Personal history of immunosuppression therapy; Z66 Do not resuscitate; Z79.1 Long term (current) use of non-steroidal anti-inflammatories (NSAID); Z79.891 Long term (current) use of opiate analgesic; Z79.890 Hormone replacement therapy; Z79.899 Other long term (current) drug therapy; Z88.1 Allergy status to other antibiotic agents; Z88.2 Allergy status to sulfonamides; Z88.8 Allergy status to other drugs, medicaments and biological substances; Z91.041 Radiographic dye allergy status; Z91.048 Other nonmedicinal substance allergy status

== ENCOUNTER → 2024-08-30 | Outpatient (CLI) | payer OTHER | LOC: M ONCR 11:22 | PROVIDERS: ATTEND General Practice | DX: C79.51 Secondary malignant neoplasm of bone (principal); R29.6 Repeated falls; Z92.3 Personal history of irradiation ==

== ENCOUNTER 2024-09-03 20:20 | Emergency (ER) | payer OTHER ==
[~2024-09-03] VITALS: Ht 167.6 cm; Wt 82.3 kg
[2024-09-03 22:12] LABS: BASO % 0.4 % (0.0-1.0); EOS # 0.2 10^3/uL (0.0-0.5); EOS % 2.4 % (0.0-3.0); HEMATOCRIT 38.1 % (36.0-47.0); HEMOGLOBIN 13.2 g/dl (12.0-15.5); LYMPH # 0.6 10^3/uL (1.5-5.0); LYMPH % 8.1 % (24.0-44.0); MEAN CORPUSCULAR HEMOGLOBIN 32.8 pg (27.0-33.0); MEAN CORPUSCULAR HGB CONC 34.6 g/dl (32.0-36.5); MEAN CORPUSCULAR VOLUME 94.5 fl (80.0-96.0); MONO # 0.4 10^3/uL (0.0-0.8); MONO % 5.8 % (2.0-8.0); NEUTROPHILS # 5.6 10^3/uL (1.5-8.5); NEUTROPHILS % 82.9 % (36.0-66.0); PLATELET COUNT, AUTOMATED 147 10^3/uL (150-450); RED BLOOD COUNT 4.03 10^6/uL (4.00-5.40); WHITE BLOOD COUNT 6.8 10^3/uL (4.0-10.0)
[2024-09-03 22:32] VITALS: TEMP 97.6; O2SAT 97
[2024-09-03 22:37] LABS: ALBUMIN 2.3 G/DL (3.2-5.2); BILIRUBIN,DIRECT 0.3 MG/DL (<0.4); BILIRUBIN,TOTAL 0.7 MG/DL (0.3-1.2); CREATININE FOR GFR 3.08 MG/DL (0.55-1.30); GLOMERULAR FILTRATION RATE 17.3 (>58); POTASSIUM SERUM 3.1 MMOL/L (3.5-5.1); TOTAL PROTEIN 6.1 G/DL (5.7-8.2)
[2024-09-03] MEDS: ONDANSETRON 4MG ORAL DISINTEGRATING TAB PO ONE (23:35)
[2024-09-03] MEDS: FAMOTIDINE 20 MG TAB PO ONE (23:50)
[2024-09-03 23:53] VITALS: BP 158/100
[2024-09-03] MEDS: METOPROLOL TART 25 MG TABLET PO ONE (23:53)
[2024-09-03] MEDS: **hydrALAZINE HCL** 25 MG TAB PO ONE (23:54)
[2024-09-04] MEDS ORDERED: ONDA-282 PO (00:55)
[2024-09-04] MEDS: ONDANSETRON 4MG ORAL DISINTEGRATING TAB PO ONE (01:03)
[2024-09-04 01:05] VITALS: BP 176/110
== END 2024-09-04 01:14 | disposition home or self-care (01) ==
LOC: M ED 20:20
DX: A09 Infectious gastroenteritis and colitis, unspecified (principal); C64.1 Malignant neoplasm of right kidney, except renal pelvis; Z99.2 Dependence on renal dialysis; Z92.21 Personal history of antineoplastic chemotherapy; Z88.2 Allergy status to sulfonamides; Z88.8 Allergy status to other drugs, medicaments and biological substances; Z91.041 Radiographic dye allergy status; Z79.899 Other long term (current) drug therapy

== ENCOUNTER 2024-09-06 11:04 | Inpatient (IN) | payer OTHER ==
[~2024-09-06] VITALS: Ht 167.6 cm; Wt 82.5 kg
[~2024-09-06 11:04] MED LIST changes: +ONDA-282 PO
[2024-09-06 12:33] LABS: BASO % 0.3 % (0.0-1.0); EOS % 0.7 % (0.0-3.0); HEMATOCRIT 36.9 % (36.0-47.0); HEMOGLOBIN 12.9 g/dl (12.0-15.5); LYMPH # 0.3 10^3/uL (1.5-5.0); LYMPH % 5.4 % (24.0-44.0); MEAN CORPUSCULAR VOLUME 94.4 fl (80.0-96.0); MONO # 0.3 10^3/uL (0.0-0.8); MONO % 4.4 % (2.0-8.0); NEUTROPHILS # 5.3 10^3/uL (1.5-8.5); NEUTROPHILS % 88.9 % (36.0-66.0); PLATELET COUNT, AUTOMATED 130 10^3/uL (150-450); RED BLOOD COUNT 3.91 10^6/uL (4.00-5.40); WHITE BLOOD COUNT 5.9 10^3/uL (4.0-10.0)
[2024-09-06 12:44] LABS: INR 1.08; PARTIAL THROMBOPLASTIN TIME 31.8 SECONDS (24.8-34.2); PROTHROMBIN TIME 14.3 SECONDS (12.5-14.5)
[2024-09-06 13:15] LABS: ALBUMIN 2.1 G/DL (3.2-5.2); BILIRUBIN,DIRECT 0.3 MG/DL (<0.4); BILIRUBIN,TOTAL 0.7 MG/DL (0.3-1.2); TOTAL PROTEIN 5.5 G/DL (5.7-8.2)
[2024-09-06] MEDS: MAALOX 30 ML SUSP *UDC PO ONE (14:33)
[2024-09-06] MEDS: LIDOCAINE VISCOUS 2% SOLN 15ML UDC PO ONE (14:33)
[2024-09-06] MEDS: ONDANSETRON 4MG 2ML VIAL IV ONE (14:33)
[2024-09-06 16:49] LABS: KETONE, URINE AUTO RFX TRACE mg/dL (NEGATIVE); LEUKOCYTE ESTERASE UR AUTO RFX NEGATIVE (NEGATIVE); NITRITE, URINE AUTO RFX NEGATIVE (NEGATIVE); RBC, URINE AUTO RFX 0 /HPF (0-3); SQUAM EPITHELIAL CELL UR AURFX 1 /HPF (0-6)
[2024-09-06 16:50] LABS: WBC, URINE AUTO RFX 13 /HPF (0-3)
[2024-09-06] MEDS ORDERED: METOCLOPRAMIDE INJ 10MG/2ML VIAL IV ONE (17:15)
[2024-09-06] MEDS: METOCLOPRAMIDE INJ 10MG/2ML VIAL IV ONE (17:33)
[2024-09-06] MEDS ORDERED: ACET-907 PO (17:58)
[2024-09-06] MEDS ORDERED: HOME MED LIST COMPLETE! XX SCH (18:00)
[2024-09-06] MEDS ORDERED: POTASSIUM CHLORIDE 10MEQ SR TABLET PO ONE (18:00)
[2024-09-06] MEDS: POTASSIUM CHLORIDE 10% LIQ 20MEQ/15ML UDC PO ONE (19:02)
[2024-09-06] MEDS: ONDANSETRON 4MG 2ML VIAL IV SCH (20:16)
[2024-09-06] MEDS: NS (Normal Saline) 0.9% 1,000 ML IV SCH (20:16)
[2024-09-06] MEDS: SUCRALFATE SUSP 1GM/10ML UD PO SCH (22:20)
[2024-09-06] MEDS: HEPARIN SOD (PORCINE) 5000UNITS/ML 1ML VIAL/SYRINGE SQ SCH (22:21)
[2024-09-06] MEDS: METOPROLOL TART 25 MG TABLET PO SCH (22:23)
[2024-09-06] MEDS: PANTOPRAZOLE 40MG VIAL IV SCH (22:23)
[2024-09-06] MEDS: rOPINIRole 0.25 MG TAB(REQUIP) PO SCH (22:45)
[2024-09-07] MEDS ORDERED: HEPARIN 1,000UNITS/ML 10ML VIAL (FOR RADIOLOGY & DIALYSIS ONLY) IV PRN (06:00)
[2024-09-07] MEDS ORDERED: SODIUM CHLORIDE 0.9% 1000 ML IV PRN (06:00)
[2024-09-07] MEDS ORDERED: LIDOCAINE 1% SDV 5ML VIAL SC PRN (06:00)
[2024-09-07] MEDS: LEVOTHYROXINE 25MCG TABLET (0.025MG) PO SCH (06:24)
[2024-09-07] MEDS: LEVOTHYROXINE 150MCG TABLET (0.15MG) PO SCH (06:25)
[2024-09-07 08:00] LABS: HEMATOCRIT 35.7 % (36.0-47.0); HEMOGLOBIN 12.2 g/dl (12.0-15.5); MEAN CORPUSCULAR HEMOGLOBIN 32.6 pg (27.0-33.0); MEAN CORPUSCULAR HGB CONC 34.2 g/dl (32.0-36.5); MEAN CORPUSCULAR VOLUME 95.5 fl (80.0-96.0); PLATELET COUNT, AUTOMATED 144 10^3/uL (150-450); RED BLOOD COUNT 3.74 10^6/uL (4.00-5.40)
[2024-09-07] MEDS: (RENVELA) SEVELAMER **CARBONate** 800 MG TAB PO SCH (08:23)
[2024-09-07] MEDS: PARoxetine 20MG TABLET PO SCH (08:23)
[2024-09-07 08:34] LABS: C REACTIVE PROTEIN QUANTITATIV 14.06 MG/DL (<1.0); CALCIUM LEVEL 8.7 MG/DL (8.5-10.1); CREATININE FOR GFR 3.9 MG/DL (0.55-1.30); GLOMERULAR FILTRATION RATE 13.2 (>58); POTASSIUM SERUM 3.3 MMOL/L (3.5-5.1)
[2024-09-07] MEDS: HEPARIN 1,000UNITS/ML 10ML VIAL (FOR RADIOLOGY & DIALYSIS ONLY) XX SCH (12:17)
[2024-09-07 20:01] VITALS: BP 153/85; TEMP 97.3; O2SAT 98
[2024-09-07] MEDS: MORPHINE 2 MG/ML 1ML VIAL IV PRN (20:49)
[2024-09-08 05:50] VITALS: BP 157/80; TEMP 97.9; O2SAT 96
[2024-09-08 06:45] LABS: BASO % 0.5 % (0.0-1.0); EOS # 0.2 10^3/uL (0.0-0.5); EOS % 4.5 % (0.0-3.0); HEMATOCRIT 32.1 % (36.0-47.0); HEMOGLOBIN 10.6 g/dl (12.0-15.5); LYMPH # 0.4 10^3/uL (1.5-5.0); LYMPH % 10.8 % (24.0-44.0); MEAN CORPUSCULAR HEMOGLOBIN 32.9 pg (27.0-33.0); MEAN CORPUSCULAR VOLUME 99.7 fl (80.0-96.0); MONO # 0.4 10^3/uL (0.0-0.8); MONO % 9.7 % (2.0-8.0); NEUTROPHILS # 2.8 10^3/uL (1.5-8.5); PLATELET COUNT, AUTOMATED 119 10^3/uL (150-450); RED BLOOD COUNT 3.22 10^6/uL (4.00-5.40); WHITE BLOOD COUNT 3.8 10^3/uL (4.0-10.0)
[2024-09-08 07:18] LABS: C REACTIVE PROTEIN QUANTITATIV 7.09 MG/DL (<1.0)
[2024-09-08 07:21] LABS: CALCIUM LEVEL 7.5 MG/DL (8.5-10.1); CREATININE FOR GFR 2.5 MG/DL (0.55-1.30); MAGNESIUM LEVEL 1.7 MG/DL (1.8-2.4); PHOSPHORUS LEVEL 1.3 MG/DL (2.5-4.9); POTASSIUM SERUM 3.5 MMOL/L (3.5-5.1)
[2024-09-08 08:06] VITALS: BP 160/92
[2024-09-08] MEDS: MAG SULF 1GM/100ML (MAG RUN) 1 GM in IV 1 EA IV SCH (08:22)
[2024-09-08] MEDS: POTASSIUM PHOSPHATE INJ 30 MMOL in D5W 500 ML IV ONE (10:37)
[2024-09-08] MEDS ORDERED: OMEP40CA4 PO (10:49)
[2024-09-08 12:00] VITALS: BP 120/73; TEMP 97.5
== END 2024-09-08 15:50 | disposition home or self-care (01) | DRG 249 ==
LOC: M ED 11:04 → M ED INP 18:23 → M MS5PR 09-07 15:25
PROVIDERS: ADMIT Internal Medicine; ATTEND Internal Medicine
PROC: 5A1D70Z Performance of Urinary Filtration, Intermittent, Less than 6 Hours Per Day (ICD-10-PCS; principal; 2024-09-07)
DX: A08.11 Acute gastroenteropathy due to Norwalk agent (principal); N18.6 End stage renal disease; C77.9 Secondary and unspecified malignant neoplasm of lymph node, unspecified; C79.51 Secondary malignant neoplasm of bone; E83.42 Hypomagnesemia; I12.0 Hypertensive chronic kidney disease with stage 5 chronic kidney disease or end stage renal disease; E87.1 Hypo-osmolality and hyponatremia; K76.89 Other specified diseases of liver; Z66 Do not resuscitate; G25.81 Restless legs syndrome; F32.A Depression, unspecified; E03.9 Hypothyroidism, unspecified; E87.6 Hypokalemia; F17.210 Nicotine dependence, cigarettes, uncomplicated; D64.9 Anemia, unspecified; K21.00 Gastro-esophageal reflux disease with esophagitis, without bleeding; G89.3 Neoplasm related pain (acute) (chronic); Z79.890 Hormone replacement therapy; Z79.899 Other long term (current) drug therapy; Z88.2 Allergy status to sulfonamides; Z88.8 Allergy status to other drugs, medicaments and biological substances; Z91.041 Radiographic dye allergy status; Z91.048 Other nonmedicinal substance allergy status; Z99.2 Dependence on renal dialysis; Z85.528 Personal history of other malignant neoplasm of kidney; Z90.5 Acquired absence of kidney; Z92.3 Personal history of irradiation; Z90.79 Acquired absence of other genital organ(s); Z92.21 Personal history of antineoplastic chemotherapy

== ENCOUNTER 2024-09-16 15:40 | Inpatient (IN) | payer OTHER ==
[~2024-09-16] VITALS: Ht 157.5 cm; Wt 84.4 kg
[~2024-09-16 15:40] MED LIST changes: +ACET-907 PO; +OMEP40CA4 PO
[2024-09-16 16:55] LABS: BASO % 0.1 % (0.0-1.0); EOS # 0.1 10^3/uL (0.0-0.5); EOS % 0.7 % (0.0-3.0); HEMATOCRIT 35.9 % (36.0-47.0); HEMOGLOBIN 12.5 g/dl (12.0-15.5); LYMPH # 0.4 10^3/uL (1.5-5.0); LYMPH % 5.5 % (24.0-44.0); MEAN CORPUSCULAR HGB CONC 34.8 g/dl (32.0-36.5); MEAN CORPUSCULAR VOLUME 94.7 fl (80.0-96.0); MONO # 0.5 10^3/uL (0.0-0.8); MONO % 6.4 % (2.0-8.0); NEUTROPHILS # 6.3 10^3/uL (1.5-8.5); NEUTROPHILS % 86.3 % (36.0-66.0); PLATELET COUNT, AUTOMATED 157 10^3/uL (150-450); RED BLOOD COUNT 3.79 10^6/uL (4.00-5.40); WHITE BLOOD COUNT 7.3 10^3/uL (4.0-10.0)
[2024-09-16 17:22] LABS: BLOOD UREA NITROGEN 6 MG/DL (9-23); CALCIUM LEVEL 7.4 MG/DL (8.5-10.1); CARBON DIOXIDE LEVEL 32 MMOL/L (20-31); CHLORIDE LEVEL 97 MMOL/L (98-107); CK-MB VALUE MASS < 1.0 NG/ML (<3.6); CPK CREATINE PHOSPHOKINASE 49 U/L (34-145); CREATININE FOR GFR 1.03 MG/DL (0.55-1.30); GLOMERULAR FILTRATION RATE > 60.0 (>58); GLUCOSE, FASTING 93 MG/DL (60-100); MB/CK RELATIVE INDEX 2.04 (< OR =4); POTASSIUM SERUM 2.7 MMOL/L (3.5-5.1); SODIUM LEVEL 138 MMOL/L (136-145); THYROID STIMULATING HORMONE 2.942 uIU/ML (0.55-4.78)
[2024-09-16] MEDS: POTASSIUM CHLORIDE 10MEQ SR TABLET PO ONE (22:14)
[2024-09-16] MEDS: MAG SULF 1GM/100ML (MAG RUN) 1 GM in IV 1 EA IV SCH (23:06)
[2024-09-17] MEDS ORDERED: OMEP40CA4 PO (00:33)
[2024-09-17] MEDS ORDERED: HYDR25TA87 PO (00:33)
[2024-09-17] MEDS ORDERED: LIDO30CR18 TOP (00:33)
[2024-09-17] MEDS ORDERED: HOME MED LIST COMPLETE! XX SCH (00:35)
[2024-09-17] MEDS ORDERED: PROCHLORPERAZINE 5MG TAB PO SCH (00:55)
[2024-09-17] MEDS ORDERED: MOM 30ML SUSPENSION UDC PO PRN (00:55)
[2024-09-17] MEDS: GABAPENTIN 100 MG CAP PO SCH (01:10)
[2024-09-17] MEDS: **hydrALAZINE HCL** 25 MG TAB PO SCH (01:10)
[2024-09-17] MEDS: METOPROLOL TART 25 MG TABLET PO SCH (01:32)
[2024-09-17] MEDS: PARoxetine 20MG TABLET PO SCH (01:32)
[2024-09-17] MEDS: rOPINIRole 0.25 MG TAB(REQUIP) PO SCH (01:51)
[2024-09-17] MEDS ORDERED: MECLIZINE 12.5 MG TAB PO PRN (05:50)
[2024-09-17] MEDS: NICOTINE 14 MG/24 HR TRANSDERMAL TD ONE (06:00)
[2024-09-17] MEDS: LEVOTHYROXINE 75MCG TABLET (0.075MG) PO SCH (07:10)
[2024-09-17] MEDS: LEVOTHYROXINE 100MCG TABLET (0.1MG) PO SCH (07:10)
[2024-09-17] MEDS: CALCIUM CARBONATE 500 MG CHEW U/D PO ONE (07:11)
[2024-09-17] MEDS: FAMOTIDINE 20 MG TAB PO SCH (08:06)
[2024-09-17] MEDS: OMEPRAZOLE 20MG CAP PO SCH (08:06)
[2024-09-17] MEDS: ASPIRIN 81MG ENTERIC TABLET PO SCH (08:06)
[2024-09-17] MEDS: HEPARIN SOD (PORCINE) 5000UNITS/ML 1ML VIAL/SYRINGE SQ SCH (08:10)
[2024-09-17 08:13] LABS: ETHYL ALCOHOL (ETHANOL) 0.004 % (0.000-0.010)
[2024-09-17 08:23] LABS: ALBUMIN 1.6 G/DL (3.2-5.2); BILIRUBIN,TOTAL 0.8 MG/DL (0.3-1.2); CALCIUM LEVEL 7.2 MG/DL (8.5-10.1); CREATININE FOR GFR 1.75 MG/DL (0.55-1.30); GLOMERULAR FILTRATION RATE 33.2 (>58); POTASSIUM SERUM 3.1 MMOL/L (3.5-5.1); TOTAL PROTEIN 5.5 G/DL (5.7-8.2)
[2024-09-17 08:28] LABS: HEMOGLOBIN 13.3 g/dl (12.0-15.5); MEAN CORPUSCULAR HEMOGLOBIN 33.5 pg (27.0-33.0); MEAN CORPUSCULAR HGB CONC 35.9 g/dl (32.0-36.5); MEAN CORPUSCULAR VOLUME 93.2 fl (80.0-96.0); PLATELET COUNT, AUTOMATED 124 10^3/uL (150-450); RED BLOOD COUNT 3.97 10^6/uL (4.00-5.40); WHITE BLOOD COUNT 10.8 10^3/uL (4.0-10.0)
[2024-09-17] MEDS ORDERED: POTASSIUM CHLORIDE 10MEQ SR TABLET PO ONE (12:40)
[2024-09-17] MEDS ORDERED: PIPERACILLIN/TAZOBACTAM SOD 3.375 GM in DEXTROSE 5% (D5W) ADV/MINI-BAG 50 ML IV SCH (13:15)
[2024-09-17] MEDS ORDERED: VANCOMYCIN HCL 1,000 MG, VIAL MATE ADAPTER 1 EACH in NS 250 ML IV SCH (13:15)
[2024-09-17 13:44] VITALS: BP 148/80; TEMP 98.2; O2SAT 97
[2024-09-17] MEDS: PIPERACILLIN/TAZOBACTAM SOD 2.25 GM in DEXTROSE 5% (D5W) ADV/MINI-BAG 50 ML IV SCH (14:07)
[2024-09-17] MEDS: POTASSIUM CHLORIDE 10MEQ SR TABLET PO ONE (14:15)
[2024-09-17 14:16] LABS: PHOSPHORUS LEVEL 1.9 MG/DL (2.5-4.9)
[2024-09-17 15:31] LABS: PROCALCITONIN 5.38 ng/ml
[2024-09-17] MEDS: VANCOMYCIN HCL 1,500 MG, VIAL MATE ADAPTER 1 EACH in NS 500 ML IV ONE (15:41)
[2024-09-17 15:59] VITALS: BP 145/82; TEMP 98.1; O2SAT 96
[2024-09-17 16:39] LABS: KETONE, URINE AUTO RFX NEGATIVE (NEGATIVE); LEUKOCYTE ESTERASE UR AUTO RFX NEGATIVE (NEGATIVE); MUCUS, URINE RFX SMALL (NEGATIVE); NITRITE, URINE AUTO RFX NEGATIVE (NEGATIVE); RBC, URINE AUTO RFX 12 /HPF (0-3); SQUAM EPITHELIAL CELL UR AURFX 8 /HPF (0-6)
[2024-09-17 16:42] LABS: WBC, URINE AUTO RFX 100 /HPF (0-3)
[2024-09-17 20:26] VITALS: BP 160/96; TEMP 97.6; O2SAT 92
[2024-09-17] MEDS: POTASSIUM PHOSPHATE INJ 30 MMOL in D5W 500 ML IV ONE (23:00)
[2024-09-18] VITALS (8 sets, daily range): BP systolic 135–168; BP diastolic 80–99; TEMP 97.6–98.2; O2SAT 94–98
[2024-09-18] MEDS: NEUTRA-PHOS 1.5 GM PACKET PO SCH (02:58)
[2024-09-18 06:05] LABS: HEMATOCRIT 30.4 % (36.0-47.0); MEAN CORPUSCULAR HEMOGLOBIN 33.1 pg (27.0-33.0); MEAN CORPUSCULAR HGB CONC 35.9 g/dl (32.0-36.5); MEAN CORPUSCULAR VOLUME 92.4 fl (80.0-96.0); RED BLOOD COUNT 3.29 10^6/uL (4.00-5.40); WHITE BLOOD COUNT 12.8 10^3/uL (4.0-10.0)
[2024-09-18 06:19] LABS: HEMOGLOBIN 10.9 g/dl (12.0-15.5)
[2024-09-18 06:41] LABS: VANCOMYCIN RANDOM 20.1 UG/ML
[2024-09-18 06:48] LABS: ALBUMIN 1.3 G/DL (3.2-5.2); BILIRUBIN,TOTAL 0.8 MG/DL (0.3-1.2); CALCIUM LEVEL 6.9 MG/DL (8.5-10.1); CREATININE FOR GFR 2.18 MG/DL (0.55-1.30); GLOMERULAR FILTRATION RATE 25.7 (>58); MAGNESIUM LEVEL 1.6 MG/DL (1.8-2.4); PHOSPHORUS LEVEL 2.2 MG/DL (2.5-4.9); POTASSIUM SERUM 3.1 MMOL/L (3.5-5.1); TOTAL PROTEIN 4.5 G/DL (5.7-8.2)
[2024-09-18] MEDS: POTASSIUM CHLORIDE 10MEQ SR TABLET PO ONE ×2 (08:53→10:58)
[2024-09-18] MEDS: CALCIUM GLUCONATE 1,000 MG in DEXTROSE 5% (D5W) MINI-BAG PLU 100 ML IV ONE (10:58)
[2024-09-18] MEDS: POTASSIUM PHOSPHATE INJ 30 MMOL in D5W 500 ML IV ONE (11:56)
[2024-09-18] MEDS: MAG SULF 1GM/100ML (MAG RUN) 1 GM in IV 1 EA IV SCH (17:59)
[2024-09-18] MEDS: LACTOBACILLUS ACIDOPHILUS CAP (BACID) PO SCH (18:35)
[2024-09-18] MEDS: LOPERAMIDE 2 MG CAPLET PO PRN (18:35)
[2024-09-18] MEDS: cefTRIAXone SOD 2 GM in DEXTROSE 5% (D5W) ADV/MINI-BAG 50 ML IV SCH (20:51)
[2024-09-19 03:06] VITALS: BP 140/85; TEMP 97; O2SAT 98
[2024-09-19] MEDS ORDERED: HEPARIN 1,000UNITS/ML 10ML VIAL (FOR RADIOLOGY & DIALYSIS ONLY) IV PRN (06:50)
[2024-09-19] MEDS ORDERED: SODIUM CHLORIDE 0.9% 1000 ML IV PRN (06:50)
[2024-09-19 07:53] VITALS: BP 153/96; TEMP 97.9; O2SAT 92
[2024-09-19 08:35] LABS: HEMATOCRIT 30.4 % (36.0-47.0); HEMOGLOBIN 10.8 g/dl (12.0-15.5); MEAN CORPUSCULAR HEMOGLOBIN 33.2 pg (27.0-33.0); MEAN CORPUSCULAR HGB CONC 35.5 g/dl (32.0-36.5); MEAN CORPUSCULAR VOLUME 93.5 fl (80.0-96.0); PLATELET COUNT, AUTOMATED 122 10^3/uL (150-450); RED BLOOD COUNT 3.25 10^6/uL (4.00-5.40); WHITE BLOOD COUNT 11.8 10^3/uL (4.0-10.0)
[2024-09-19 09:16] LABS: VANCOMYCIN RANDOM 13.2 UG/ML
[2024-09-19 09:18] LABS: ALBUMIN 1.3 G/DL (3.2-5.2); BILIRUBIN,TOTAL 0.8 MG/DL (0.3-1.2); CALCIUM LEVEL 6.9 MG/DL (8.5-10.1); CREATININE FOR GFR 2.6 MG/DL (0.55-1.30); PHOSPHORUS LEVEL 3.1 MG/DL (2.5-4.9); POTASSIUM SERUM 3.6 MMOL/L (3.5-5.1); TOTAL PROTEIN 4.7 G/DL (5.7-8.2)
[2024-09-19] MEDS: HEPARIN 1,000UNITS/ML 10ML VIAL (FOR RADIOLOGY & DIALYSIS ONLY) XX SCH (09:28)
[2024-09-19] MEDS: VANCOMYCIN HCL 1,000 MG, VIAL MATE ADAPTER 1 EACH in NS 250 ML IV SCH (12:46)
[2024-09-19 13:30] VITALS: BP 146/94; TEMP 97.4; O2SAT 94
[2024-09-19] MEDS: VANCOMYCIN HCL 500 MG in DEXTROSE 5% (D5W) MINI-BAG PLU 100 ML IV ONE (13:54)
[2024-09-19 15:52] VITALS: BP 146/82; TEMP 96.9; O2SAT 94
[2024-09-19 20:20] VITALS: BP 155/97; TEMP 97.1; O2SAT 96
[2024-09-19] MEDS: ACETAMINOPHEN 325 MG TAB PO PRN (20:47)
[2024-09-19 23:59] VITALS: BP 143/95; TEMP 96.8; O2SAT 95
[2024-09-20 04:15] VITALS: BP 150/98; TEMP 97.1; O2SAT 93
[2024-09-20 08:00] VITALS: BP 150/100; TEMP 97.4; O2SAT 96
[2024-09-20 08:37] LABS: HEMOGLOBIN 10.5 g/dl (12.0-15.5); MEAN CORPUSCULAR HEMOGLOBIN 32.3 pg (27.0-33.0); MEAN CORPUSCULAR HGB CONC 33.9 g/dl (32.0-36.5); MEAN CORPUSCULAR VOLUME 95.4 fl (80.0-96.0); PLATELET COUNT, AUTOMATED 119 10^3/uL (150-450); RED BLOOD COUNT 3.25 10^6/uL (4.00-5.40); WHITE BLOOD COUNT 9.3 10^3/uL (4.0-10.0)
[2024-09-20 09:05] LABS: VANCOMYCIN RANDOM 23.8 UG/ML
[2024-09-20 09:41] LABS: ALBUMIN 1.3 G/DL (3.2-5.2); BILIRUBIN,TOTAL 0.9 MG/DL (0.3-1.2); CALCIUM LEVEL 7.1 MG/DL (8.5-10.1); CREATININE FOR GFR 2.13 MG/DL (0.55-1.30); GLOMERULAR FILTRATION RATE 26.4 (>58); MAGNESIUM LEVEL 1.8 MG/DL (1.8-2.4); POTASSIUM SERUM 3.7 MMOL/L (3.5-5.1); TOTAL PROTEIN 4.8 G/DL (5.7-8.2)
[2024-09-20 09:56] LABS: PHOSPHORUS LEVEL 2.3 MG/DL (2.5-4.9)
[2024-09-20] MEDS: PERCOCET 5MG/325MG TAB PO PRN (10:23)
[2024-09-20 11:29] VITALS: BP 135/91; TEMP 97.5; O2SAT 97
[2024-09-20 15:42] VITALS: BP 135/94; TEMP 98; O2SAT 98
[2024-09-20 19:51] VITALS: BP 149/99; TEMP 97.6; O2SAT 94
[2024-09-20 23:54] VITALS: BP 151/91; TEMP 98.2; O2SAT 94
[2024-09-21 04:04] VITALS: BP 146/91; TEMP 97.4; O2SAT 95
[2024-09-21] MEDS ORDERED: HEPARIN 1,000UNITS/ML 10ML VIAL (FOR RADIOLOGY & DIALYSIS ONLY) IV PRN (06:40)
[2024-09-21] MEDS ORDERED: SODIUM CHLORIDE 0.9% 1000 ML IV PRN (06:40)
[2024-09-21 07:34] LABS: CALCIUM LEVEL 7.1 MG/DL (8.5-10.1); CREATININE FOR GFR 2.47 MG/DL (0.55-1.30); GLOMERULAR FILTRATION RATE 22.3 (>58); MAGNESIUM LEVEL 1.7 MG/DL (1.8-2.4); POTASSIUM SERUM 3.8 MMOL/L (3.5-5.1)
[2024-09-21 07:54] VITALS: BP 152/98; TEMP 98.2; O2SAT 94
[2024-09-21] MEDS: HEPARIN 1,000UNITS/ML 10ML VIAL (FOR RADIOLOGY & DIALYSIS ONLY) XX SCH (08:51)
[2024-09-21 09:34] LABS: PROCALCITONIN 2.45 ng/ml
[2024-09-21 12:35] VITALS: BP 150/96; TEMP 97.9; O2SAT 97
[2024-09-21] MEDS ORDERED: LOPE2CA PO (12:53)
[2024-09-21] MEDS ORDERED: RISATAB3 PO (12:53)
[2024-09-21] MEDS ORDERED: ASPI81TAEC PO (12:53)
[2024-09-21 17:38] VITALS: BP 158/96
== END 2024-09-21 18:24 | disposition home health service (06) | DRG 52 ==
LOC: EDUNIT# 15:40 → EDBD 15:40 → M ED 15:40 → M ED INP 09-17 12:23 → M PCU 09-17 12:46
PROVIDERS: ADMIT Internal Medicine; ATTEND Student in an Organized Health Care Education/Training Program
PROC: B246ZZZ Ultrasonography of Right and Left Heart (ICD-10-PCS; principal; 2024-09-17)
PROC: 5A1D70Z Performance of Urinary Filtration, Intermittent, Less than 6 Hours Per Day (ICD-10-PCS; 2024-09-19)
DX: G93.41 Metabolic encephalopathy (principal); N18.6 End stage renal disease; R18.8 Other ascites; C79.51 Secondary malignant neoplasm of bone; R78.81 Bacteremia; Q61.3 Polycystic kidney, unspecified; I12.0 Hypertensive chronic kidney disease with stage 5 chronic kidney disease or end stage renal disease; Q44.6 Cystic disease of liver; E83.42 Hypomagnesemia; G45.9 Transient cerebral ischemic attack, unspecified; A08.11 Acute gastroenteropathy due to Norwalk agent; E83.39 Other disorders of phosphorus metabolism; E87.1 Hypo-osmolality and hyponatremia; C64.1 Malignant neoplasm of right kidney, except renal pelvis; F17.200 Nicotine dependence, unspecified, uncomplicated; G51.0 Bell's palsy; G25.81 Restless legs syndrome; F32.A Depression, unspecified; B95.61 Methicillin susceptible Staphylococcus aureus infection as the cause of diseases classified elsewhere; B95.5 Unspecified streptococcus as the cause of diseases classified elsewhere; R55 Syncope and collapse; E03.9 Hypothyroidism, unspecified; G43.109 Migraine with aura, not intractable, without status migrainosus; E87.6 Hypokalemia; R94.31 Abnormal electrocardiogram [ECG] [EKG]; K21.00 Gastro-esophageal reflux disease with esophagitis, without bleeding; Z66 Do not resuscitate; Z99.2 Dependence on renal dialysis; Z90.5 Acquired absence of kidney; Z92.3 Personal history of irradiation; Z92.21 Personal history of antineoplastic chemotherapy; Z79.890 Hormone replacement therapy; Z79.899 Other long term (current) drug therapy; Z88.2 Allergy status to sulfonamides; Z88.8 Allergy status to other drugs, medicaments and biological substances; Z91.041 Radiographic dye allergy status; Z91.048 Other nonmedicinal substance allergy status

== ENCOUNTER → 2024-09-22 | Outpatient (CLI) | payer OTHER ==
[~2024-09-22] VITALS: Ht 167.6 cm; Wt 80.7 kg
[~2024-09-22] MED LIST changes: +ASPI81TAEC PO; +LIDO30CR18 TOP; +LOPE2CA PO; +RISATAB3 PO
[2024-09-22 13:16] VITALS: BP 143/112; O2SAT 96
== END ==
LOC: M PAL 12:41
PROVIDERS: ATTEND Family Medicine
DX: Z51.5 Encounter for palliative care (principal); R52 Pain, unspecified; R18.0 Malignant ascites; R11.0 Nausea; R19.4 Change in bowel habit; C64.9 Malignant neoplasm of unspecified kidney, except renal pelvis; C79.51 Secondary malignant neoplasm of bone; C79.89 Secondary malignant neoplasm of other specified sites; Z92.21 Personal history of antineoplastic chemotherapy; Z92.3 Personal history of irradiation; Z92.25 Personal history of immunosuppression therapy; Z66 Do not resuscitate; Z79.82 Long term (current) use of aspirin; Z79.899 Other long term (current) drug therapy; Z91.041 Radiographic dye allergy status; Z91.048 Other nonmedicinal substance allergy status; Z88.1 Allergy status to other antibiotic agents; Z88.2 Allergy status to sulfonamides; Z88.8 Allergy status to other drugs, medicaments and biological substances

== ENCOUNTER → 2024-09-22 | Outpatient (CLI) | payer OTHER | LOC: M IRPRO 13:50 | PROVIDERS: ATTEND General Practice | DX: C64.9 Malignant neoplasm of unspecified kidney, except renal pelvis (principal); R18.0 Malignant ascites ==

== ENCOUNTER → 2024-10-04 | Outpatient (POV) | payer OTHER ==
[~2024-10-04] VITALS: Ht 167.6 cm; Wt 87.7 kg
[~2024-10-04] MED LIST changes: +B-12100010 PO
[2024-10-04 14:15] VITALS: BP 166/114; O2SAT 99
== END ==
LOC: M IRPOV 14:02
PROVIDERS: ATTEND Radiology Diagnostic Radiology
DX: C79.51 Secondary malignant neoplasm of bone (principal); G89.3 Neoplasm related pain (acute) (chronic); I10 Essential (primary) hypertension; F17.210 Nicotine dependence, cigarettes, uncomplicated; M21.372 Foot drop, left foot; M79.7 Fibromyalgia; N18.6 End stage renal disease; R53.1 Weakness; Z79.891 Long term (current) use of opiate analgesic; Z85.528 Personal history of other malignant neoplasm of kidney; Z92.21 Personal history of antineoplastic chemotherapy; Z99.2 Dependence on renal dialysis

== ENCOUNTER 2024-10-16 13:43 | Emergency (ER) | payer OTHER ==
[~2024-10-16] VITALS: Ht 167.6 cm; Wt 78.7 kg
[2024-10-16 16:58] LABS: BASO # 0.1 10^3/uL (0.0-0.2); BASO % 1.7 % (0.0-1.0); EOS # 0.2 10^3/uL (0.0-0.5); EOS % 4.2 % (0.0-3.0); HEMATOCRIT 32.7 % (36.0-47.0); HEMOGLOBIN 10.3 g/dl (12.0-15.5); LYMPH # 0.8 10^3/uL (1.5-5.0); LYMPH % 14.1 % (24.0-44.0); MEAN CORPUSCULAR HEMOGLOBIN 34.2 pg (27.0-33.0); MEAN CORPUSCULAR HGB CONC 31.5 g/dl (32.0-36.5); MEAN CORPUSCULAR VOLUME 108.6 fl (80.0-96.0); MONO # 0.7 10^3/uL (0.0-0.8); MONO % 12.4 % (2.0-8.0); NEUTROPHILS # 3.8 10^3/uL (1.5-8.5); NEUTROPHILS % 66.7 % (36.0-66.0); PLATELET COUNT, AUTOMATED 220 10^3/uL (150-450); RED BLOOD COUNT 3.01 10^6/uL (4.00-5.40); WHITE BLOOD COUNT 5.7 10^3/uL (4.0-10.0)
[2024-10-16 17:13] LABS: KETONE, URINE AUTO RFX NEGATIVE (NEGATIVE); NITRITE, URINE AUTO RFX NEGATIVE (NEGATIVE); RBC, URINE AUTO RFX TNTC /HPF (0-3); SQUAM EPITHELIAL CELL UR AURFX 12 /HPF (0-6)
[2024-10-16 17:15] LABS: LEUKOCYTE ESTERASE UR AUTO RFX 2+ (NEGATIVE); WBC, URINE AUTO RFX TNTC /HPF (0-3)
[2024-10-16 17:21] LABS: ALBUMIN 1.7 G/DL (3.2-5.2); BILIRUBIN,DIRECT 0.2 MG/DL (<0.4); BILIRUBIN,TOTAL 0.4 MG/DL (0.3-1.2); TOTAL PROTEIN 5.4 G/DL (5.7-8.2)
[2024-10-16 19:11] LABS: INR 0.92; PROTHROMBIN TIME 12.7 SECONDS (12.5-14.5)
[2024-10-16 19:25] LABS: CALCIUM LEVEL 8.5 MG/DL (8.5-10.1); CREATININE FOR GFR 2.63 MG/DL (0.55-1.30); GLOMERULAR FILTRATION RATE 20.7 (>58); POTASSIUM SERUM 3.9 MMOL/L (3.5-5.1)
[2024-10-16] MEDS ORDERED: CEFD300C PO (19:44)
[2024-10-16] MEDS: CEFDINIR 300 MG CAP (OMNICEF) PO ONE (19:58)
[2024-10-16 20:02] VITALS: BP 171/111; TEMP 98.6; O2SAT 98
== END 2024-10-16 20:05 | disposition home or self-care (01) ==
LOC: M ED 13:43
DX: R31.9 Hematuria, unspecified (principal); Q61.2 Polycystic kidney, adult type; I10 Essential (primary) hypertension; Z99.2 Dependence on renal dialysis; Z90.5 Acquired absence of kidney; Z85.528 Personal history of other malignant neoplasm of kidney; Z79.899 Other long term (current) drug therapy; Z91.041 Radiographic dye allergy status; Z91.89 Other specified personal risk factors, not elsewhere classified; Z88.2 Allergy status to sulfonamides; Z88.8 Allergy status to other drugs, medicaments and biological substances

== ENCOUNTER → 2024-10-17 | Outpatient (CLI) | payer MEDICARE, OTHER ==
[~2024-10-17] MED LIST changes: +CARA1TAB6 PO; +CEFD300C PO; +CLOP75TA2 PO; +HYDR-161; +HYDR50TA46 PO; +METO50TA7 PO; +TRAZ-252 PO; +TRAZ-257 PO
== END ==
LOC: M PLARAD 07:49
PROVIDERS: ATTEND Nurse Practitioner Women's Health
DX: C79.51 Secondary malignant neoplasm of bone (principal)
CPT/HCPCS: 78815; A9552

== ENCOUNTER → 2024-10-26 | Outpatient (CLI) | payer OTHER ==
[~2024-10-26] VITALS: Ht 167.6 cm; Wt 74.6 kg
[~2024-10-26] MED LIST changes: -CARA1TAB6 PO; -CLOP75TA2 PO; -HYDR-161; -HYDR50TA46 PO; -METO50TA7 PO; -TRAZ-252 PO; -TRAZ-257 PO
[2024-10-26 15:36] VITALS: BP 168/118; O2SAT 99
== END ==
LOC: M PAL 15:16
PROVIDERS: ATTEND Family Medicine
DX: Z51.5 Encounter for palliative care (principal); C64.1 Malignant neoplasm of right kidney, except renal pelvis; C79.51 Secondary malignant neoplasm of bone; Z66 Do not resuscitate; Z92.3 Personal history of irradiation; Z92.21 Personal history of antineoplastic chemotherapy; Z90.5 Acquired absence of kidney; Z79.891 Long term (current) use of opiate analgesic; Z79.899 Other long term (current) drug therapy; Z79.82 Long term (current) use of aspirin; Z88.2 Allergy status to sulfonamides; Z91.041 Radiographic dye allergy status; Z99.2 Dependence on renal dialysis; M54.50 Low back pain, unspecified

== ENCOUNTER → 2024-10-27 | Outpatient (CLI) | payer OTHER | LOC: M ONCR 15:24 | PROVIDERS: ATTEND General Practice | DX: C79.51 Secondary malignant neoplasm of bone (principal); C64.1 Malignant neoplasm of right kidney, except renal pelvis; Z90.5 Acquired absence of kidney; Z92.29 Personal history of other drug therapy; Z92.3 Personal history of irradiation; Z79.622 Long term (current) use of Janus kinase inhibitor; Z91.041 Radiographic dye allergy status; Z88.8 Allergy status to other drugs, medicaments and biological substances; Z88.1 Allergy status to other antibiotic agents; Z88.2 Allergy status to sulfonamides; Z91.048 Other nonmedicinal substance allergy status; Z79.82 Long term (current) use of aspirin; Z79.899 Other long term (current) drug therapy; Z79.890 Hormone replacement therapy ==

== ENCOUNTER → 2024-11-11 | Outpatient (CLI) | payer MEDICARE, OTHER ==
[~2024-11-11] MED LIST changes: +HYDR-161
== END ==
LOC: M PLARAD 08:46
PROVIDERS: ATTEND Internal Medicine Medical Oncology
DX: C64.1 Malignant neoplasm of right kidney, except renal pelvis (principal); J32.0 Chronic maxillary sinusitis; R90.89 Other abnormal findings on diagnostic imaging of central nervous system

== ENCOUNTER → 2024-11-14 | Outpatient (CLI) | payer MEDICARE, OTHER ==
[~2024-11-14] VITALS: Ht 167.6 cm; Wt 68.2 kg
[~2024-11-14] MED LIST changes: +ACETAMINOPHEN 1000MG/100ML IV BAG As Ordered ONE; +ISOVUE-300 61% 100ML VIAL As Ordered ONE; +LIDOCAINE 1% MDV 20ML VIAL As Ordered ONE; +LIDOCAINE 2% 100MG/5ML SDV (FOR ANES.) As Ordered ONE; +LR 1,000 ML IV SCH; +MIDAZOLAM INJ 2MG/2ML VIAL As Ordered ONE; +ONDANSETRON 4MG 2ML VIAL As Ordered ONE; +ONDANSETRON 4MG 2ML VIAL IV PRN; +ROCURONIUM BROMIDE 50MG/5ML VIAL As Ordered ONE; +SUGAMMADEX SODIUM 500 MG/5 ML VIAL (BRIDION) As Ordered ONE; +ceFAZolin SODIUM 2 GM VIAL As Ordered ONE; +fentaNYL 100 MCG/2 ML INJECTION As Ordered ONE; +propofoL 200 MG/20 ML VIAL As Ordered ONE
[2024-11-14] MEDS: ceFAZolin SODIUM 2 GM in DEXTROSE 5% (D5W) ADV/MINI-BAG 50 ML IV ONE (08:51)
[2024-11-14] MEDS: HYDROMORPHONE HCL 0.5 MG/ 0.5 ML SYRINGE IV PRN (11:15)
[2024-11-14] MEDS: oxyCODONE 5MG TAB PO PRN (11:15)
[2024-11-14] MEDS: fentaNYL 100 MCG/2 ML INJECTION IV PRN (11:50)
[2024-11-14 12:55] VITALS: BP 133/103; TEMP 98.4; O2SAT 98
== END ==
LOC: M IRPRO 06:59
PROVIDERS: ATTEND Radiology Diagnostic Radiology
DX: C64.9 Malignant neoplasm of unspecified kidney, except renal pelvis (principal)
CPT/HCPCS: 20205; 22513; 22515; 72100; 84132; 88305; 88311; J0131; J0690; J1100; J1171; J2250; J2405; J3010; Q9967

== ENCOUNTER 2024-11-16 19:36 | Emergency (ER) | payer MEDICARE, OTHER ==
[~2024-11-16] VITALS: Ht 167.6 cm; Wt 68.2 kg
[~2024-11-16 19:36] MED LIST changes: -ACETAMINOPHEN 1000MG/100ML IV BAG As Ordered ONE; -ISOVUE-300 61% 100ML VIAL As Ordered ONE; -LIDOCAINE 1% MDV 20ML VIAL As Ordered ONE; -LIDOCAINE 2% 100MG/5ML SDV (FOR ANES.) As Ordered ONE; -LR 1,000 ML IV SCH; -MIDAZOLAM INJ 2MG/2ML VIAL As Ordered ONE; -ONDANSETRON 4MG 2ML VIAL As Ordered ONE; -ONDANSETRON 4MG 2ML VIAL IV PRN; -ROCURONIUM BROMIDE 50MG/5ML VIAL As Ordered ONE; -SUGAMMADEX SODIUM 500 MG/5 ML VIAL (BRIDION) As Ordered ONE; -ceFAZolin SODIUM 2 GM VIAL As Ordered ONE; -fentaNYL 100 MCG/2 ML INJECTION As Ordered ONE; -propofoL 200 MG/20 ML VIAL As Ordered ONE
[2024-11-16] MEDS: METOPROLOL TART 25 MG TABLET PO ONE (20:55)
[2024-11-16] MEDS: **hydrALAZINE** 10 MG TAB PO ONE (20:56)
[2024-11-16 21:04] LABS: BASO % 0.2 % (0.0-1.0); EOS % 0.7 % (0.0-3.0); HEMATOCRIT 37.6 % (36.0-47.0); HEMOGLOBIN 12.6 g/dl (12.0-15.5); LYMPH # 0.5 10^3/uL (1.5-5.0); LYMPH % 7.7 % (24.0-44.0); MEAN CORPUSCULAR HEMOGLOBIN 32.4 pg (27.0-33.0); MEAN CORPUSCULAR HGB CONC 33.5 g/dl (32.0-36.5); MEAN CORPUSCULAR VOLUME 96.7 fl (80.0-96.0); MONO # 0.6 10^3/uL (0.0-0.8); MONO % 9.5 % (2.0-8.0); NEUTROPHILS % 81.4 % (36.0-66.0); PLATELET COUNT, AUTOMATED 171 10^3/uL (150-450); RED BLOOD COUNT 3.89 10^6/uL (4.00-5.40); WHITE BLOOD COUNT 6.1 10^3/uL (4.0-10.0)
[2024-11-16 21:28] LABS: ALBUMIN 1.7 G/DL (3.2-5.2); BILIRUBIN,DIRECT 0.2 MG/DL (<0.4); BILIRUBIN,TOTAL 0.3 MG/DL (0.3-1.2); CALCIUM LEVEL 7.9 MG/DL (8.5-10.1); CREATININE FOR GFR 1.23 MG/DL (0.55-1.30); GLOMERULAR FILTRATION RATE 49.8 (>58); POTASSIUM SERUM 3.3 MMOL/L (3.5-5.1); TOTAL PROTEIN 5.6 G/DL (5.7-8.2)
[2024-11-16] MEDS: hydrALAZINE 20MG/ML 1ML VIAL IV STA (21:45)
[2024-11-16 22:39] VITALS: BP 161/102
[2024-11-16] MEDS: ISOSORBIDE DIN. (ISORDIL) 30 MG TAB PO ONE (22:39)
[2024-11-16] MEDS: **hydrALAZINE** 50 MG TAB PO ONE (22:39)
[2024-11-16] MEDS: NORCO, ANEXSIA 5/325MG TABLET (HYDROcodone/ACETAMINOPHEN) PO ONE (22:48)
[2024-11-16] MEDS: PANTOPRAZOLE 40MG VIAL IV ONE (23:36)
[2024-11-17] MEDS ORDERED: METO50TA7 PO (00:07)
[2024-11-17] MEDS ORDERED: HYDR50TA46 PO (00:07)
[2024-11-17] MEDS ORDERED: CARA1TAB6 PO (00:08)
[2024-11-17 00:45] VITALS: BP 136/90; TEMP 96.8; O2SAT 84
[2024-11-23] MEDS ORDERED: TRAZ-252 PO (09:24)
[2024-11-23] MEDS ORDERED: GABA-1171 PO (10:22)
[2024-11-23] MEDS ORDERED: ASPI81TAEC PO (10:35)
== END 2024-11-17 00:54 | disposition home or self-care (01) ==
LOC: M ED 19:36
DX: K29.80 Duodenitis without bleeding (principal); I12.0 Hypertensive chronic kidney disease with stage 5 chronic kidney disease or end stage renal disease; Z99.2 Dependence on renal dialysis; K21.9 Gastro-esophageal reflux disease without esophagitis; G25.81 Restless legs syndrome; F32.A Depression, unspecified; Z79.899 Other long term (current) drug therapy; Z91.041 Radiographic dye allergy status; Z88.2 Allergy status to sulfonamides; Z88.8 Allergy status to other drugs, medicaments and biological substances

== ENCOUNTER 2024-11-19 13:52 | Inpatient (IN) | payer MEDICARE, OTHER ==
[~2024-11-19] VITALS: Ht 165.1 cm; Wt 68.4 kg
[~2024-11-19 13:52] MED LIST changes: +CARA1TAB6 PO; +HYDR50TA46 PO; +METO50TA7 PO
[2024-11-19 15:08] LABS: BASO % 0.3 % (0.0-1.0); EOS # 0.1 10^3/uL (0.0-0.5); EOS % 1.3 % (0.0-3.0); HEMATOCRIT 36.3 % (36.0-47.0); HEMOGLOBIN 12.4 g/dl (12.0-15.5); LYMPH # 0.5 10^3/uL (1.5-5.0); LYMPH % 6.2 % (24.0-44.0); MEAN CORPUSCULAR HEMOGLOBIN 32.9 pg (27.0-33.0); MEAN CORPUSCULAR HGB CONC 34.2 g/dl (32.0-36.5); MEAN CORPUSCULAR VOLUME 96.3 fl (80.0-96.0); MONO # 0.5 10^3/uL (0.0-0.8); MONO % 5.9 % (2.0-8.0); NEUTROPHILS # 6.8 10^3/uL (1.5-8.5); NEUTROPHILS % 85.9 % (36.0-66.0); PLATELET COUNT, AUTOMATED 192 10^3/uL (150-450); RED BLOOD COUNT 3.77 10^6/uL (4.00-5.40)
[2024-11-19 15:29] LABS: INR 1.12; PARTIAL THROMBOPLASTIN TIME 36.4 SECONDS (24.8-34.2); PROTHROMBIN TIME 14.8 SECONDS (12.5-14.5)
[2024-11-19] MEDS: **hydrALAZINE** 50 MG TAB PO ONE (15:50)
[2024-11-19] MEDS: ACETAMINOPHEN 325 MG TAB PO ONE (15:50)
[2024-11-19] MEDS: hydrALAZINE 20MG/ML 1ML VIAL IV STA (15:50)
[2024-11-19] MEDS ORDERED: CABO60TA PO (21:54)
[2024-11-19] MEDS ORDERED: HOME MED LIST COMPLETE! XX SCH (21:55)
[2024-11-19 22:43] LABS: HEMOGLOBIN A1c 4.3 % (4.0-6.0)
[2024-11-20] VITALS (9 sets, daily range): BP systolic 162–177; BP diastolic 98–107; TEMP 96.7–98.4; O2SAT 96–99
[2024-11-20] MEDS: CLOPIDOGREL 75 MG TAB PO ONE (00:01)
[2024-11-20 02:04] LABS: ALBUMIN 1.5 G/DL (3.2-5.2); ALKALINE PHOSPHATASE 245 U/L (35-104); ALT/SGPT 18 U/L (7.0-40); AST/SGOT 35 U/L (<34); BILIRUBIN,DIRECT 0.2 MG/DL (<0.4); BILIRUBIN,TOTAL 0.3 MG/DL (0.3-1.2); BLOOD UREA NITROGEN 19 MG/DL (9-23); CALCIUM LEVEL 7.3 MG/DL (8.5-10.1); CARBON DIOXIDE LEVEL 24 MMOL/L (20-31); CHLORIDE LEVEL 102 MMOL/L (98-107); CHOLESTEROL LEVEL 92 MG/DL (<200); CHOLESTEROL RISK RATIO 4.33 (<5); CPK CREATINE PHOSPHOKINASE 64 U/L (34-145); GLOMERULAR FILTRATION RATE 24.2 (>58); GLUCOSE, FASTING 79 MG/DL (60-100); HDL CHOLESTEROL 21.2 MG/DL (>40); LDL CHOLESTEROL 40.4 MG/DL (<100); MAGNESIUM LEVEL 1.4 MG/DL (1.8-2.4); NON-HDL-C 70.8 MG/DL; PHOSPHORUS LEVEL 2.1 MG/DL (2.5-4.9); POTASSIUM SERUM 3.7 MMOL/L (3.5-5.1); SODIUM LEVEL 133 MMOL/L (136-145); TRIGLYCERIDES LEVEL 152 MG/DL (<150)
[2024-11-20] MEDS ORDERED: ACETAMINOPHEN 325 MG TAB PO PRN (02:25)
[2024-11-20] MEDS ORDERED: NORCO, ANEXSIA 5/325MG TABLET (HYDROcodone/ACETAMINOPHEN) PO PRN ×2 (02:25)
[2024-11-20] MEDS ORDERED: ONDANSETRON 4MG TAB PO PRN (02:25)
[2024-11-20 02:35] LABS: CK-MB VALUE MASS < 1.0 NG/ML (<3.6); MB/CK RELATIVE INDEX 1.56 (< OR =4)
[2024-11-20] MEDS: MAGNESIUM OXIDE 400MG TAB (MAG-OX) PO ONE (02:43)
[2024-11-20] MEDS: PROCHLORPERAZINE 5MG TAB PO SCH (06:08)
[2024-11-20] MEDS: LEVOTHYROXINE 100MCG TABLET (0.1MG) PO SCH (06:08)
[2024-11-20] MEDS: LEVOTHYROXINE 75MCG TABLET (0.075MG) PO SCH (06:08)
[2024-11-20] MEDS: HEPARIN SOD (PORCINE) 5000UNITS/ML 1ML VIAL/SYRINGE SQ SCH (08:16)
[2024-11-20] MEDS: CLOPIDOGREL 75 MG TAB PO SCH (08:18)
[2024-11-20] MEDS: CYANOCOBALAMIN 500 MCG TAB PO SCH (08:18)
[2024-11-20] MEDS: OMEPRAZOLE 20MG CAP PO SCH (08:18)
[2024-11-20] MEDS: SUCRALFATE 1 GM TAB PO SCH (08:18)
[2024-11-20] MEDS: LACTOBACILLUS ACIDOPHILUS CAP (BACID) PO SCH (08:18)
[2024-11-20] MEDS: ASPIRIN 81MG CHEW TABLET PO SCH (08:18)
[2024-11-20] MEDS: rOPINIRole 0.25 MG TAB(REQUIP) PO SCH (21:32)
[2024-11-20] MEDS: PARoxetine 20MG TABLET PO SCH (21:33)
[2024-11-20] MEDS: GABAPENTIN 100 MG CAP PO SCH (21:33)
[2024-11-20] MEDS: METOPROLOL TART 50 MG TAB PO SCH (21:33)
[2024-11-21 03:31] VITALS: BP 174/103; TEMP 98; O2SAT 99
[2024-11-21 05:51] LABS: BASO % 0.4 % (0.0-1.0); EOS # 0.1 10^3/uL (0.0-0.5); EOS % 2.3 % (0.0-3.0); HEMATOCRIT 31.1 % (36.0-47.0); HEMOGLOBIN 10.6 g/dl (12.0-15.5); LYMPH # 0.5 10^3/uL (1.5-5.0); LYMPH % 8.5 % (24.0-44.0); MEAN CORPUSCULAR HEMOGLOBIN 32.2 pg (27.0-33.0); MEAN CORPUSCULAR HGB CONC 34.1 g/dl (32.0-36.5); MEAN CORPUSCULAR VOLUME 94.5 fl (80.0-96.0); MONO # 0.4 10^3/uL (0.0-0.8); MONO % 8.3 % (2.0-8.0); NEUTROPHILS # 4.3 10^3/uL (1.5-8.5); NEUTROPHILS % 80.1 % (36.0-66.0); PLATELET COUNT, AUTOMATED 167 10^3/uL (150-450); RED BLOOD COUNT 3.29 10^6/uL (4.00-5.40); WHITE BLOOD COUNT 5.3 10^3/uL (4.0-10.0)
[2024-11-21] MEDS ORDERED: HEPARIN 1,000UNITS/ML 10ML VIAL (FOR RADIOLOGY & DIALYSIS ONLY) IV PRN (06:00)
[2024-11-21] MEDS ORDERED: LIDOCAINE 1% SDV 5ML VIAL SC PRN (06:00)
[2024-11-21] MEDS ORDERED: SODIUM CHLORIDE 0.9% 1000 ML IV PRN (06:00)
[2024-11-21 06:14] LABS: CALCIUM LEVEL 7.2 MG/DL (8.5-10.1); CREATININE FOR GFR 2.62 MG/DL (0.55-1.30); GLOMERULAR FILTRATION RATE 20.8 (>58); POTASSIUM SERUM 3.5 MMOL/L (3.5-5.1)
[2024-11-21 07:20] VITALS: BP 158/100; TEMP 98; O2SAT 97
[2024-11-21] MEDS: **hydrALAZINE** 50 MG TAB PO SCH (09:00)
[2024-11-21] MEDS: HEPARIN 1,000UNITS/ML 10ML VIAL (FOR RADIOLOGY & DIALYSIS ONLY) XX SCH (09:48)
[2024-11-21 12:24] VITALS: BP 138/93; TEMP 98.1; O2SAT 96
[2024-11-21] MEDS: ATORVASTATIN 20 MG TAB PO SCH (12:27)
[2024-11-21] MEDS ORDERED: CLOP75TA2 PO (15:12)
[2024-11-21 16:49] VITALS: BP 145/98
[2024-11-21 16:53] VITALS: BP 149/89; TEMP 98.3; O2SAT 97
[2024-11-22] MEDS ORDERED: ASPIRIN 81MG CHEW TABLET PO SCH (09:00)
== END 2024-11-21 17:51 | disposition home or self-care (01) | DRG 64 ==
LOC: M ED 13:52 → EDBD 13:52 → M ED INP 21:31 → M PCU 11-20 04:24
PROVIDERS: ADMIT Family Medicine; ATTEND Family Medicine
PROC: B246ZZZ Ultrasonography of Right and Left Heart (ICD-10-PCS; principal; 2024-11-20)
PROC: 5A1D70Z Performance of Urinary Filtration, Intermittent, Less than 6 Hours Per Day (ICD-10-PCS; 2024-11-21)
DX: I63.81 Other cerebral infarction due to occlusion or stenosis of small artery (principal); N18.6 End stage renal disease; I12.0 Hypertensive chronic kidney disease with stage 5 chronic kidney disease or end stage renal disease; C79.51 Secondary malignant neoplasm of bone; M79.7 Fibromyalgia; G43.909 Migraine, unspecified, not intractable, without status migrainosus; K31.84 Gastroparesis; K44.9 Diaphragmatic hernia without obstruction or gangrene; K21.00 Gastro-esophageal reflux disease with esophagitis, without bleeding; K76.0 Fatty (change of) liver, not elsewhere classified; D64.9 Anemia, unspecified; K76.89 Other specified diseases of liver; M54.9 Dorsalgia, unspecified; F41.9 Anxiety disorder, unspecified; F32.A Depression, unspecified; E03.9 Hypothyroidism, unspecified; G25.81 Restless legs syndrome; F17.210 Nicotine dependence, cigarettes, uncomplicated; R26.89 Other abnormalities of gait and mobility; Z79.82 Long term (current) use of aspirin; Z79.890 Hormone replacement therapy; Z79.899 Other long term (current) drug therapy; Z91.041 Radiographic dye allergy status; Z88.2 Allergy status to sulfonamides; Z88.8 Allergy status to other drugs, medicaments and biological substances; Z99.2 Dependence on renal dialysis; Z92.3 Personal history of irradiation; Z92.21 Personal history of antineoplastic chemotherapy; Z90.79 Acquired absence of other genital organ(s); Z90.5 Acquired absence of kidney

== ENCOUNTER → 2024-11-23 | Outpatient (CLI) | payer OTHER, MEDICARE ==
[~2024-11-23] VITALS: Ht 167.6 cm; Wt 67.0 kg
[~2024-11-23] MED LIST changes: +CLOP75TA2 PO; +TRAZ-252 PO
[2024-11-23 09:11] VITALS: BP 134/103; O2SAT 97
== END ==
LOC: M PAL 08:57
PROVIDERS: ATTEND Physician Assistant
DX: Z51.5 Encounter for palliative care (principal); Z66 Do not resuscitate; C64.9 Malignant neoplasm of unspecified kidney, except renal pelvis; C79.51 Secondary malignant neoplasm of bone; C79.89 Secondary malignant neoplasm of other specified sites; Z92.21 Personal history of antineoplastic chemotherapy; Z92.3 Personal history of irradiation; Z90.5 Acquired absence of kidney; Z79.891 Long term (current) use of opiate analgesic; G47.09 Other insomnia; Z79.899 Other long term (current) drug therapy; Z79.82 Long term (current) use of aspirin; Z88.2 Allergy status to sulfonamides; Z88.8 Allergy status to other drugs, medicaments and biological substances; Z91.041 Radiographic dye allergy status

== ENCOUNTER → 2024-12-21 | Outpatient (POV) | payer MEDICARE, OTHER ==
[~2024-12-21] VITALS: Ht 167.6 cm; Wt 65.9 kg
[2024-12-21 11:15] VITALS: BP 124/86; O2SAT 100
== END ==
LOC: M IRPOV 10:46
PROVIDERS: ATTEND Radiology Diagnostic Radiology
DX: C79.51 Secondary malignant neoplasm of bone (principal); C64.1 Malignant neoplasm of right kidney, except renal pelvis; Q61.3 Polycystic kidney, unspecified; I12.0 Hypertensive chronic kidney disease with stage 5 chronic kidney disease or end stage renal disease; N18.6 End stage renal disease; M79.7 Fibromyalgia; K76.9 Liver disease, unspecified; Z86.73 Personal history of transient ischemic attack (TIA), and cerebral infarction without residual deficits; Z88.1 Allergy status to other antibiotic agents; Z88.2 Allergy status to sulfonamides; Z88.8 Allergy status to other drugs, medicaments and biological substances; Z90.5 Acquired absence of kidney; Z91.041 Radiographic dye allergy status; Z92.21 Personal history of antineoplastic chemotherapy; Z99.2 Dependence on renal dialysis

== ENCOUNTER → 2024-12-29 | Outpatient (CLI) | payer MEDICARE, OTHER ==
[~2024-12-29] MED LIST changes: +INLY5TAB PO; +PROC10TA5; +TRAZ-257 PO
== END ==
LOC: M RAD 06:59
PROVIDERS: ATTEND Radiology Diagnostic Radiology
DX: C64.9 Malignant neoplasm of unspecified kidney, except renal pelvis (principal); M54.50 Low back pain, unspecified

== ENCOUNTER → 2025-01-04 | Outpatient (CLI) | payer MEDICARE, OTHER ==
[~2025-01-04] VITALS: Ht 167.6 cm; Wt 69.9 kg
[~2025-01-04] MED LIST changes: -INLY5TAB PO; -PROC10TA5
[2025-01-04 08:56] VITALS: BP 139/93; O2SAT 98
== END ==
LOC: M PAL 08:44
PROVIDERS: ATTEND Physician Assistant
DX: Z51.5 Encounter for palliative care (principal); Z66 Do not resuscitate; C64.1 Malignant neoplasm of right kidney, except renal pelvis; C79.51 Secondary malignant neoplasm of bone; C78.89 Secondary malignant neoplasm of other digestive organs; Z92.3 Personal history of irradiation; Z92.21 Personal history of antineoplastic chemotherapy; Z90.5 Acquired absence of kidney; Z79.891 Long term (current) use of opiate analgesic; Z79.82 Long term (current) use of aspirin; Z91.041 Radiographic dye allergy status; Z88.2 Allergy status to sulfonamides; Z88.8 Allergy status to other drugs, medicaments and biological substances; Z79.899 Other long term (current) drug therapy; Z86.73 Personal history of transient ischemic attack (TIA), and cerebral infarction without residual deficits; Q61.3 Polycystic kidney, unspecified; R60.0 Localized edema; Z88.1 Allergy status to other antibiotic agents
CPT/HCPCS: G0463 ×2

== ENCOUNTER → 2025-01-04 | Outpatient (POV) | payer MEDICARE, OTHER ==
[~2025-01-04] VITALS: Ht 152.4 cm; Wt 69.9 kg
[2025-01-04 10:00] VITALS: BP 142/88; O2SAT 100
== END ==
LOC: M IRPOV 09:23
PROVIDERS: ATTEND Radiology Diagnostic Radiology
DX: Z47.89 Encounter for other orthopedic aftercare (principal); C79.51 Secondary malignant neoplasm of bone; C64.1 Malignant neoplasm of right kidney, except renal pelvis; Q61.3 Polycystic kidney, unspecified; R60.0 Localized edema; Z79.82 Long term (current) use of aspirin; Z79.899 Other long term (current) drug therapy; Z86.73 Personal history of transient ischemic attack (TIA), and cerebral infarction without residual deficits; Z88.1 Allergy status to other antibiotic agents; Z88.2 Allergy status to sulfonamides; Z88.8 Allergy status to other drugs, medicaments and biological substances; Z91.041 Radiographic dye allergy status; Z92.21 Personal history of antineoplastic chemotherapy

== ENCOUNTER → 2025-03-16 | Outpatient (CLI) | payer OTHER, MEDICARE ==
[~2025-03-16] VITALS: Ht 167.6 cm; Wt 64.6 kg
[~2025-03-16] MED LIST changes: +INLY5TAB PO; +PROC10TA5
[2025-03-16 09:38] VITALS: BP 175/113; O2SAT 99
[2025-03-16 10:00] VITALS: BP 150/100
== END ==
LOC: M PAL 09:20
PROVIDERS: ATTEND Physician Assistant
DX: Z51.5 Encounter for palliative care (principal); Z66 Do not resuscitate; C64.9 Malignant neoplasm of unspecified kidney, except renal pelvis; C79.51 Secondary malignant neoplasm of bone; C78.89 Secondary malignant neoplasm of other digestive organs; Z79.891 Long term (current) use of opiate analgesic; Z79.899 Other long term (current) drug therapy; Z79.82 Long term (current) use of aspirin; Z79.83 Long term (current) use of bisphosphonates; Z91.041 Radiographic dye allergy status; Z88.2 Allergy status to sulfonamides

== ENCOUNTER 2025-03-21 10:20 | Outpatient (RCR) | payer OTHER, MEDICARE ==
[2025-03-27] MEDS ORDERED: LEVO200T4 PO (10:38)
== END 2025-03-23 ==
LOC: M ONCR 10:20
PROVIDERS: ATTEND General Practice
DX: Z51.0 Encounter for antineoplastic radiation therapy (principal); C79.51 Secondary malignant neoplasm of bone

== ENCOUNTER 2025-04-05 05:24 | Emergency (ER) | payer OTHER, MEDICARE ==
[~2025-04-05] VITALS: Ht 167.6 cm; Wt 63.6 kg
[~2025-04-05 05:24] MED LIST changes: +LEVO200T4 PO; +VALA1TAB5 PO
[2025-04-05 05:29] VITALS: TEMP 96.8
[2025-04-05 10:05] LABS: BASO # 0.0 10^3/uL (0.0-0.2); BASO % 0.8 % (0.0-1.0); EOS # 0.2 10^3/uL (0.0-0.5); EOS % 4.4 % (0.0-3.0); LYMPH # 0.7 10^3/uL (1.5-5.0); LYMPH % 15.3 % (24.0-44.0); MONO # 0.3 10^3/uL (0.0-0.8); MONO % 6.3 % (2.0-8.0); NEUTROPHILS # 3.5 10^3/uL (1.5-8.5); NEUTROPHILS % 73.0 % (36.0-66.0); PLATELET COUNT, AUTOMATED 199 10^3/uL (150-450)
[2025-04-05 10:42] LABS: CALCIUM LEVEL 8.5 MG/DL (8.5-10.1); CARBON DIOXIDE LEVEL 25.0 MMOL/L (20-31); CHLORIDE LEVEL 99.0 MMOL/L (98-107); CREATININE FOR GFR 3.08 MG/DL (0.55-1.30); GLOMERULAR FILTRATION RATE 18.1 (>58); POTASSIUM SERUM 3.7 MMOL/L (3.5-5.1); SODIUM LEVEL 134.0 MMOL/L (136-145)
[2025-04-05 10:45] VITALS: O2SAT 95
[2025-04-05 11:00] VITALS: BP 152/96
== END 2025-04-05 11:35 | disposition home or self-care (01) ==
LOC: M ED 05:24
DX: T88.7XXA Unspecified adverse effect of drug or medicament, initial encounter (principal); I10 Essential (primary) hypertension; K44.9 Diaphragmatic hernia without obstruction or gangrene; K21.9 Gastro-esophageal reflux disease without esophagitis; M79.7 Fibromyalgia; C64.9 Malignant neoplasm of unspecified kidney, except renal pelvis; Z87.442 Personal history of urinary calculi; Z86.73 Personal history of transient ischemic attack (TIA), and cerebral infarction without residual deficits; F17.200 Nicotine dependence, unspecified, uncomplicated; Z87.01 Personal history of pneumonia (recurrent); Z90.5 Acquired absence of kidney; Z99.2 Dependence on renal dialysis

== ENCOUNTER 2025-04-05 08:45 | Outpatient (RCR) | payer OTHER, MEDICARE | END 2025-04-23 | LOC: M ONCR 08:45 | PROVIDERS: ATTEND General Practice | DX: Z51.0 Encounter for antineoplastic radiation therapy (principal); C79.51 Secondary malignant neoplasm of bone ==

== ENCOUNTER → 2025-05-02 | Outpatient (CLI) | payer OTHER, MEDICARE | LOC: M ONCR 13:21 | PROVIDERS: ATTEND General Practice | DX: Z01.89 Encounter for other specified special examinations (principal); Z92.3 Personal history of irradiation ==

== ENCOUNTER → 2025-05-12 | Outpatient (CLI) | payer OTHER, MEDICARE ==
[2025-05-12 18:06] LABS: BASO # 0.1 10^3/uL (0.0-0.2); BASO % 1.4 % (0.0-1.0); EOS # 0.2 10^3/uL (0.0-0.5); EOS % 4.1 % (0.0-3.0); LYMPH # 0.7 10^3/uL (1.5-5.0); LYMPH % 14.9 % (24.0-44.0); MONO # 0.4 10^3/uL (0.0-0.8); MONO % 8.0 % (2.0-8.0); NEUTROPHILS # 3.1 10^3/uL (1.5-8.5); NEUTROPHILS % 71.1 % (36.0-66.0); PLATELET COUNT, AUTOMATED 197 10^3/uL (150-450)
[2025-05-12 18:38] LABS: ALT/SGPT 14.0 U/L (7.0-40); AST/SGOT 26.0 U/L (<34); CALCIUM LEVEL 9.0 MG/DL (8.5-10.1); CARBON DIOXIDE LEVEL 28.0 MMOL/L (20-31); CHLORIDE LEVEL 101.0 MMOL/L (98-107); CREATININE FOR GFR 1.36 MG/DL (0.55-1.30); GLOMERULAR FILTRATION RATE 48.4 (>58); POTASSIUM SERUM 4.1 MMOL/L (3.5-5.1); SODIUM LEVEL 135.0 MMOL/L (136-145)
== END ==
LOC: M LAB 15:54
PROVIDERS: ATTEND Internal Medicine Hematology & Oncology
DX: C64.9 Malignant neoplasm of unspecified kidney, except renal pelvis (principal)

== ENCOUNTER → 2025-05-12 | Outpatient (CLI) | payer OTHER, MEDICARE ==
[~2025-05-12] MED LIST changes: +MACR100C43 PO; +POTA10CA70 PO
== END ==
LOC: M LAB 15:59
PROVIDERS: ATTEND Internal Medicine Gastroenterology
DX: R13.10 Dysphagia, unspecified (principal); R63.4 Abnormal weight loss; K44.9 Diaphragmatic hernia without obstruction or gangrene; I85.00 Esophageal varices without bleeding; R18.8 Other ascites; Q44.6 Cystic disease of liver; C64.9 Malignant neoplasm of unspecified kidney, except renal pelvis; K59.1 Functional diarrhea; Z53.9 Procedure and treatment not carried out, unspecified reason

== ENCOUNTER → 2025-05-15 | Outpatient (REF) | payer OTHER, MEDICARE ==
[~2025-05-15] MED LIST changes: -MACR100C43 PO; -POTA10CA70 PO
== END ==
LOC: M LAB REF 10:58
PROVIDERS: ATTEND Internal Medicine Gastroenterology
DX: R13.10 Dysphagia, unspecified (principal); R63.4 Abnormal weight loss; K44.9 Diaphragmatic hernia without obstruction or gangrene; I85.00 Esophageal varices without bleeding; R18.8 Other ascites; Q44.6 Cystic disease of liver; C64.9 Malignant neoplasm of unspecified kidney, except renal pelvis; K59.1 Functional diarrhea

== ENCOUNTER → 2025-05-25 | Outpatient (CLI) | payer OTHER, MEDICARE | LOC: M PAL 10:03 | PROVIDERS: ATTEND Physician Assistant | DX: Z51.5 Encounter for palliative care (principal); Z66 Do not resuscitate; C64.9 Malignant neoplasm of unspecified kidney, except renal pelvis; C79.51 Secondary malignant neoplasm of bone; C79.89 Secondary malignant neoplasm of other specified sites; Z92.21 Personal history of antineoplastic chemotherapy; Z92.3 Personal history of irradiation; Z90.5 Acquired absence of kidney; Z79.891 Long term (current) use of opiate analgesic; Z88.2 Allergy status to sulfonamides; Z91.041 Radiographic dye allergy status; Z88.6 Allergy status to analgesic agent; Z79.82 Long term (current) use of aspirin; Z79.899 Other long term (current) drug therapy; Z79.83 Long term (current) use of bisphosphonates ==

== ENCOUNTER → 2025-05-29 | Outpatient (CLI) | payer OTHER, MEDICARE | LOC: M RAD 16:04 | DX: C64.9 Malignant neoplasm of unspecified kidney, except renal pelvis (principal); R18.8 Other ascites; N28.1 Cyst of kidney, acquired; R91.8 Other nonspecific abnormal finding of lung field ==

== ENCOUNTER → 2025-06-08 | Outpatient (CLI) | payer OTHER, MEDICARE ==
[~2025-06-08] MED LIST changes: +POTA10CA70 PO
== END ==
LOC: M IRPRO 13:48
DX: R18.8 Other ascites (principal); C64.9 Malignant neoplasm of unspecified kidney, except renal pelvis

== ENCOUNTER 2025-06-09 20:04 | Emergency (ER) | payer OTHER, MEDICARE ==
[~2025-06-09] VITALS: Ht 167.6 cm; Wt 60.4 kg
[2025-06-09 20:48] LABS: BASO # 0.1 10^3/uL (0.0-0.2); BASO % 0.7 % (0.0-1.0); EOS # 0.2 10^3/uL (0.0-0.5); EOS % 1.8 % (0.0-3.0); LYMPH # 0.7 10^3/uL (1.5-5.0); LYMPH % 8.7 % (24.0-44.0); MONO # 0.7 10^3/uL (0.0-0.8); MONO % 8.1 % (2.0-8.0); NEUTROPHILS # 6.5 10^3/uL (1.5-8.5); NEUTROPHILS % 80.2 % (36.0-66.0); PLATELET COUNT, AUTOMATED 234 10^3/uL (150-450)
[2025-06-09 21:31] LABS: KETONE, URINE AUTO RFX NEGATIVE (NEGATIVE); MUCUS, URINE RFX SMALL (NEGATIVE); NITRITE, URINE AUTO RFX NEGATIVE (NEGATIVE); RBC, URINE AUTO RFX 15 /HPF (0-3); SQUAM EPITHELIAL CELL UR AURFX 6 /HPF (0-6)
[2025-06-09 21:35] LABS: LEUKOCYTE ESTERASE UR AUTO RFX 3+ (NEGATIVE); WBC, URINE AUTO RFX 180 /HPF (0-3)
[2025-06-09 23:11] LABS: ALT/SGPT < 9 U/L (7.0-40); AST/SGOT 15 U/L (<34); CALCIUM LEVEL 8.8 MG/DL (8.5-10.1); CARBON DIOXIDE LEVEL 30 MMOL/L (20-31); CHLORIDE LEVEL 96 MMOL/L (98-107); CK-MB VALUE MASS < 1.0 NG/ML (<3.6); CPK CREATINE PHOSPHOKINASE 25 U/L (34-145); CREATININE FOR GFR 2.56 MG/DL (0.55-1.30); GLOMERULAR FILTRATION RATE 22.6 (>58); POTASSIUM SERUM 3.3 MMOL/L (3.5-5.1); SODIUM LEVEL 136 MMOL/L (136-145)
[2025-06-09 23:13] VITALS: BP 200/114
[2025-06-09] MEDS: **hydrALAZINE** 50 MG TAB PO ONE (23:13)
[2025-06-10] MEDS ORDERED: NITROFURANTOIN 100 MG CAP PO ONE (07:25)
[2025-06-10] MEDS ORDERED: MACR100C43 PO (07:28)
[2025-06-10 09:14] VITALS: BP 139/89; TEMP 96.7; O2SAT 96
== END 2025-06-10 09:16 | disposition home or self-care (01) ==
LOC: M ED 20:04
DX: N39.0 Urinary tract infection, site not specified (principal); Z85.528 Personal history of other malignant neoplasm of kidney; Z90.5 Acquired absence of kidney; N28.1 Cyst of kidney, acquired; K76.89 Other specified diseases of liver; Z79.899 Other long term (current) drug therapy; Z88.2 Allergy status to sulfonamides; Z88.8 Allergy status to other drugs, medicaments and biological substances; Z91.041 Radiographic dye allergy status

== ENCOUNTER → 2025-06-30 | Outpatient (REF) | payer OTHER, MEDICARE ==
[~2025-06-30] MED LIST changes: +DRON2.5C17 PO; +LEVO200C2 PO; +MACR100C43 PO; +METO25TA4 PO; +OXYC-673 PO; +OXYC10TA12 PO; +OXYC20TA40 PO
== END ==
LOC: M LAB REF 08:59
PROVIDERS: ATTEND Internal Medicine
DX: E03.9 Hypothyroidism, unspecified (principal)

== ENCOUNTER → 2025-07-06 | Outpatient (CLI) | payer OTHER, MEDICARE ==
[~2025-07-06] VITALS: Ht 167.6 cm; Wt 65.3 kg
[2025-07-06 09:26] VITALS: BP 175/98; O2SAT 100
== END ==
LOC: M PAL 09:08
PROVIDERS: ATTEND Physician Assistant
DX: Z51.5 Encounter for palliative care (principal); Z66 Do not resuscitate; C64.9 Malignant neoplasm of unspecified kidney, except renal pelvis; C79.51 Secondary malignant neoplasm of bone; C79.89 Secondary malignant neoplasm of other specified sites; Z92.3 Personal history of irradiation; Z92.21 Personal history of antineoplastic chemotherapy; Z90.5 Acquired absence of kidney; Z79.891 Long term (current) use of opiate analgesic; Z91.041 Radiographic dye allergy status; Z88.2 Allergy status to sulfonamides; Z88.6 Allergy status to analgesic agent; Z79.82 Long term (current) use of aspirin; Z79.899 Other long term (current) drug therapy; Z79.83 Long term (current) use of bisphosphonates

== ENCOUNTER → 2025-07-13 | Outpatient (CLI) | payer OTHER, MEDICARE ==
[~2025-07-13] MED LIST changes: +MIRA3350 PO; +OXYC-141 PO; +SENN-186 PO
== END ==
LOC: M ONCR 10:52
PROVIDERS: ATTEND General Practice
DX: M25.552 Pain in left hip (principal); C64.1 Malignant neoplasm of right kidney, except renal pelvis

== ENCOUNTER 2025-07-19 09:19 | Outpatient (RCR) | payer OTHER, MEDICARE ==
[~2025-07-19 09:19] MED LIST changes: -MIRA3350 PO; -OXYC-141 PO; -SENN-186 PO
[2025-07-19] MEDS ORDERED: OXYC-141 PO (09:25)
[2025-07-19] MEDS ORDERED: SENN-186 PO (14:17)
[2025-07-19] MEDS ORDERED: MIRA3350 PO (14:17)
== END 2025-07-23 ==
LOC: M ONCR 09:19
PROVIDERS: ATTEND General Practice
DX: Z51.0 Encounter for antineoplastic radiation therapy (principal); C79.51 Secondary malignant neoplasm of bone

== ENCOUNTER → 2025-07-19 | Outpatient (CLI) | payer OTHER, MEDICARE ==
[~2025-07-19] VITALS: Ht 167.6 cm; Wt 63.6 kg
[2025-07-19 09:07] VITALS: BP 187/102; O2SAT 100
== END ==
LOC: M PAL 08:49
PROVIDERS: ATTEND Physician Assistant
DX: Z51.5 Encounter for palliative care (principal); Z66 Do not resuscitate; C66.9 Malignant neoplasm of unspecified ureter; C79.51 Secondary malignant neoplasm of bone; C79.89 Secondary malignant neoplasm of other specified sites; Z92.21 Personal history of antineoplastic chemotherapy; Z92.3 Personal history of irradiation; Z90.5 Acquired absence of kidney; Z79.891 Long term (current) use of opiate analgesic; Z79.899 Other long term (current) drug therapy; Z91.041 Radiographic dye allergy status; Z88.2 Allergy status to sulfonamides; Z79.82 Long term (current) use of aspirin; Z79.83 Long term (current) use of bisphosphonates

== ENCOUNTER 2025-07-26 08:06 | Outpatient (RCR) | payer OTHER, MEDICARE ==
[~2025-07-26 08:06] MED LIST changes: -CIPR-250 PO; -HYDR50TA46; -METO5TAB2 PO
[2025-07-27] MEDS ORDERED: METO5TAB2 PO (15:51)
[2025-07-28] MEDS ORDERED: HYDR50TA46 (12:05)
[2025-07-28] MEDS ORDERED: CIPR-250 PO (16:25)
[2025-08-01] MEDS ORDERED: METH-1164 PO (12:34)
[2025-08-22] MEDS ORDERED: OXYC40TA29 PO (14:45)
== END 2025-08-23 ==
LOC: M ONCR 08:06
PROVIDERS: ATTEND General Practice
DX: Z51.0 Encounter for antineoplastic radiation therapy (principal); C79.51 Secondary malignant neoplasm of bone

== ENCOUNTER → 2025-07-26 | Outpatient (CLI) | payer OTHER, MEDICARE ==
[~2025-07-26] MED LIST changes: +CIPR-250 PO; +HYDR50TA46; +METO5TAB2 PO; +MIRA3350 PO; +OXYC-141 PO; +SENN-186 PO
== END ==
LOC: M RAD 06:50
PROVIDERS: ATTEND General Practice
DX: C79.51 Secondary malignant neoplasm of bone (principal)
CPT/HCPCS: 78306; A9503

== ENCOUNTER 2025-07-28 11:38 | Emergency (ER) | payer OTHER, MEDICARE ==
[~2025-07-28] VITALS: Ht 167.6 cm; Wt 60.9 kg
[~2025-07-28 11:38] MED LIST changes: +METO5TAB2 PO
[2025-07-28] MEDS ORDERED: HYDR50TA46 (12:05)
[2025-07-28 13:38] LABS: BASO # 0.0 10^3/uL (0.0-0.2); BASO % 0.6 % (0.0-1.0); EOS # 0.1 10^3/uL (0.0-0.5); EOS % 1.4 % (0.0-3.0); LYMPH # 0.5 10^3/uL (1.5-5.0); LYMPH % 7.5 % (24.0-44.0); MONO # 0.6 10^3/uL (0.0-0.8); MONO % 9.7 % (2.0-8.0); NEUTROPHILS # 5.1 10^3/uL (1.5-8.5); NEUTROPHILS % 80.3 % (36.0-66.0); PLATELET COUNT, AUTOMATED 195 10^3/uL (150-450)
[2025-07-28] MEDS: ONDANSETRON 4MG/2ML VIAL IV ONE (13:58)
[2025-07-28] MEDS: NS 500 ML IV ONE (13:58)
[2025-07-28 14:02] LABS: CALCIUM LEVEL 9.0 MG/DL (8.5-10.1); CARBON DIOXIDE LEVEL 31.0 MMOL/L (20-31); CHLORIDE LEVEL 96.0 MMOL/L (98-107); CREATININE FOR GFR 2.96 MG/DL (0.55-1.30); GLOMERULAR FILTRATION RATE 18.9 (>58); POTASSIUM SERUM 3.2 MMOL/L (3.5-5.1); SODIUM LEVEL 138.0 MMOL/L (136-145)
[2025-07-28] MEDS: ACETAMINOPHEN 325 MG TAB PO ONE (14:23)
[2025-07-28 14:24] LABS: INR 0.92
[2025-07-28 14:26] LABS: ALT/SGPT < 9 U/L (7.0-40); AST/SGOT 15 U/L (<34)
[2025-07-28] MEDS: oxyCODONE 20MG CR TAB PO ONE (15:50)
[2025-07-28] MEDS: **hydrALAZINE** 50 MG TAB PO ONE (15:51)
[2025-07-28 15:58] LABS: KETONE, URINE AUTO RFX NEGATIVE (NEGATIVE); LEUKOCYTE ESTERASE UR AUTO RFX NEGATIVE (NEGATIVE); NITRITE, URINE AUTO RFX NEGATIVE (NEGATIVE); RBC, URINE AUTO RFX TNTC /HPF (0-3); SQUAM EPITHELIAL CELL UR AURFX 0 /HPF (0-6); WBC, URINE AUTO RFX 73 /HPF (0-3)
[2025-07-28] MEDS ORDERED: CIPR-250 PO (16:25)
[2025-07-28 16:40] VITALS: BP 180/120; TEMP 98.5; O2SAT 97
[2025-07-28] MEDS: CIPROFLOXACIN 250 MG TAB PO ONE (16:45)
== END 2025-07-28 16:51 | disposition home or self-care (01) ==
LOC: M ED 11:38
DX: N39.0 Urinary tract infection, site not specified (principal); R31.9 Hematuria, unspecified; N18.6 End stage renal disease; Z99.2 Dependence on renal dialysis; C64.9 Malignant neoplasm of unspecified kidney, except renal pelvis; C79.9 Secondary malignant neoplasm of unspecified site; Q61.3 Polycystic kidney, unspecified; Z90.5 Acquired absence of kidney; R18.8 Other ascites; Z88.8 Allergy status to other drugs, medicaments and biological substances; Z88.2 Allergy status to sulfonamides; Z91.041 Radiographic dye allergy status; Z79.82 Long term (current) use of aspirin; Z79.899 Other long term (current) drug therapy; Z79.890 Hormone replacement therapy; Z79.891 Long term (current) use of opiate analgesic
CPT/HCPCS: 74176; 80048; 80076; 81001; 83605; 84145; 85025; 85610; 85730; 87086; 96361; 96374; 99284; J2405

== ENCOUNTER → 2025-08-01 | Outpatient (CLI) | payer OTHER, MEDICARE ==
[~2025-08-01] MED LIST changes: +CIPR-250 PO; +HYDR50TA46; +METH-1164 PO; +OXYC40TA29 PO
== END ==
LOC: M ONCR 10:03
PROVIDERS: ATTEND General Practice
DX: C79.51 Secondary malignant neoplasm of bone (principal); R18.8 Other ascites; Z92.3 Personal history of irradiation

== ENCOUNTER → 2025-08-01 | Outpatient (CLI) | payer OTHER, MEDICARE ==
[~2025-08-01] MED LIST changes: +ACETAMINOPHEN 325 MG TAB PO PRN; -OXYC40TA29 PO
[2025-08-01 14:05] VITALS: TEMP 98.5
[2025-08-01 16:00] VITALS: BP 145/94; O2SAT 100
== END ==
LOC: M IRPRO 13:49
PROVIDERS: ATTEND General Practice
DX: R18.8 Other ascites (principal)

== ENCOUNTER → 2025-08-01 | Outpatient (CLI) | payer OTHER, MEDICARE ==
[~2025-08-01] VITALS: Ht 167.6 cm; Wt 61.0 kg
[~2025-08-01] MED LIST changes: -ACETAMINOPHEN 325 MG TAB PO PRN
[2025-08-01 10:20] VITALS: BP 190/102; O2SAT 98
== END ==
LOC: M PAL 10:01
PROVIDERS: ATTEND Physician Assistant
DX: Z51.5 Encounter for palliative care (principal); Z66 Do not resuscitate; C80.1 Malignant (primary) neoplasm, unspecified; C79.51 Secondary malignant neoplasm of bone; C78.7 Secondary malignant neoplasm of liver and intrahepatic bile duct; Z79.891 Long term (current) use of opiate analgesic; Z91.041 Radiographic dye allergy status; Z88.2 Allergy status to sulfonamides; Z88.6 Allergy status to analgesic agent; Z79.82 Long term (current) use of aspirin; Z79.899 Other long term (current) drug therapy; Z79.83 Long term (current) use of bisphosphonates